=== PATIENT | female | born 1975 | race Caucasian/White ===

== ENCOUNTER → 2023-05-26 10:06 | Outpatient (BNVA) | payer SELFPAY | PROVIDERS: Family Provider Family Medicine; PCP Family Medicine; Visit Provider Family Medicine | DX: E11.621 Type 2 diabetes mellitus with foot ulcer; L97.509 Non-pressure chronic ulcer of other part of unspecified foot with unspecified severity; E03.9 Hypothyroidism, unspecified | CPT/HCPCS: 80053; 80061; 83036; 84443; 85025; 86140 ==

== ENCOUNTER → 2023-05-29 08:43 | Outpatient (BNVA) | payer OTHER, SELFPAY | PROVIDERS: Family Provider Family Medicine; PCP Family Medicine; Visit Provider Podiatrist Foot & Ankle Surgery | DX: E11.621 Type 2 diabetes mellitus with foot ulcer (principal); L97.512 Non-pressure chronic ulcer of other part of right foot with fat layer exposed; L97.522 Non-pressure chronic ulcer of other part of left foot with fat layer exposed; Z79.84 Long term (current) use of oral hypoglycemic drugs | CPT/HCPCS: 73630 ==

== ENCOUNTER → 2023-06-16 10:03 | Outpatient (BNVA) | payer OTHER, SELFPAY | PROVIDERS: Family Provider Family Medicine; PCP Family Medicine; Visit Provider Nurse Practitioner Family | DX: E11.52 Type 2 diabetes mellitus with diabetic peripheral angiopathy with gangrene (principal); L89.892 Pressure ulcer of other site, stage 2; L97.321 Non-pressure chronic ulcer of left ankle limited to breakdown of skin; Z09 Encounter for follow-up examination after completed treatment for conditions other than malignant neoplasm | CPT/HCPCS: 87070; 87077; 87176; 87186; 87205 ==

== ENCOUNTER 2023-06-18 12:13 | Outpatient (CLI) | payer OTHER, SELFPAY | END 2023-06-18 12:14 | disposition home or self-care (01) | LOC: SPT 12:14 | PROVIDERS: Family Provider Family Medicine; PCP Family Medicine; Visit Provider Podiatrist Foot & Ankle Surgery | DX: Z46.89 Encounter for fitting and adjustment of other specified devices (principal); E11.621 Type 2 diabetes mellitus with foot ulcer; L97.509 Non-pressure chronic ulcer of other part of unspecified foot with unspecified severity | CPT/HCPCS: 97760; L4361 ==

== ENCOUNTER → 2023-11-06 08:28 | Outpatient (BNVA) | payer OTHER, SELFPAY | PROVIDERS: Family Provider Family Medicine; PCP Family Medicine; Visit Provider Family Medicine | DX: Z13.6 Encounter for screening for cardiovascular disorders (principal) | CPT/HCPCS: 80061; 82947; 83036 ==

== ENCOUNTER → 2023-11-09 14:40 | Outpatient (BNVA) | payer OTHER, SELFPAY | PROVIDERS: Family Provider Family Medicine; PCP Family Medicine; Visit Provider Podiatrist Foot & Ankle Surgery | DX: E11.621 Type 2 diabetes mellitus with foot ulcer (principal); L97.518 Non-pressure chronic ulcer of other part of right foot with other specified severity; E11.8 Type 2 diabetes mellitus with unspecified complications; Z79.84 Long term (current) use of oral hypoglycemic drugs | CPT/HCPCS: 73630 ==

== ENCOUNTER → 2024-12-05 09:59 | Outpatient (BNVA) | payer OTHER, SELFPAY | PROVIDERS: Family Provider Family Medicine; PCP Family Medicine; Visit Provider Family Medicine | DX: I10 Essential (primary) hypertension (principal); E11.621 Type 2 diabetes mellitus with foot ulcer; L97.509 Non-pressure chronic ulcer of other part of unspecified foot with unspecified severity; E11.9 Type 2 diabetes mellitus without complications; E03.9 Hypothyroidism, unspecified; M19.90 Unspecified osteoarthritis, unspecified site | CPT/HCPCS: 80053; 80061; 83036; 84443; 84550; 85025; 86140; 86160; 86162; 86225; 86235; 86255; 86376 ==

== ENCOUNTER 2024-12-08 16:25 | Outpatient (CLI) | payer OTHER, SELFPAY ==
--- NOTE | 2024-12-08 16:45 | MR_ITS ---
WS: [id number] MRI LEFT FOOT WITH AND WITHOUT CONTRAST. COMPARISON: Radiograph 11/09/2023 Multiplanar, multisequence imaging is performed with and without contrast. MultiHance 20 mL. Abnormal appearance of the hindfoot centered at the calcaneus. There is abnormal T2 signal throughout a large portion of the calcaneus. Very mild sparing of the anterior calcaneal process and the posterior most calcaneus. There is abnormal marrow signal consistent with edema. On the postcontrast imaging there is enhancement consistent with osteomyelitis. Heterogeneous, up edematous soft tissue along the lateral aspect of the posterior calcaneus is probably a treated tract and ulceration although it does not appear to be open. There is a significant amount of edema with enhancement along the posterior lateral calcaneus. Large area of osteomyelitis throughout the calcaneus. There is marked cellulitis surrounding the calcaneus and along the lateral foot extending into the midfoot. Mild thickening of the peroneal brevis tendon with increased signal along the lateral ankle consistent with a partial tear and tendinopathy. There is edema along the lateral ankle closely associated with the peroneal tendon sheath. Lateral plantar aponeurosis is involved with edema and cellulitis. Achilles tendon is negative. No osteochondral lesions along the talar dome. MR/MR foot LT wo/w con [id number] IMPRESSION: 1. Large area of involvement of osteomyelitis involving the calcaneus. Greater than 50% involvement of the calcaneus. 2. Diffuse cellulitis along the lateral foot. No definite abscess identified. 3. Cellulitis and edema involves the lateral most plantar aponeurosis. 4. Partial focal tear peroneal brevis tendon.
[2024-12-08] MEDS: gadobenate dimeglumine 20 mL vial IV (17:24)
== END 2024-12-08 16:26 | disposition home or self-care (01) ==
PROVIDERS: PCP Family Medicine; Visit Provider Family Medicine
DX: E11.621 Type 2 diabetes mellitus with foot ulcer (principal); L97.529 Non-pressure chronic ulcer of other part of left foot with unspecified severity; L03.116 Cellulitis of left lower limb; S86.312A Strain of muscle(s) and tendon(s) of peroneal muscle group at lower leg level, left leg, initial encounter; X58.XXXA Exposure to other specified factors, initial encounter; R93.6 Abnormal findings on diagnostic imaging of limbs; M86.8X7 Other osteomyelitis, ankle and foot
CPT/HCPCS: 73720; 85025; 86140

== ENCOUNTER → 2024-12-09 11:50 | Outpatient (BNVA) | payer OTHER, SELFPAY | PROVIDERS: PCP Family Medicine; Visit Provider Podiatrist Foot & Ankle Surgery | DX: E11.621 Type 2 diabetes mellitus with foot ulcer (principal); L97.528 Non-pressure chronic ulcer of other part of left foot with other specified severity; L03.116 Cellulitis of left lower limb; E11.9 Type 2 diabetes mellitus without complications; M86.8X7 Other osteomyelitis, ankle and foot; Z79.84 Long term (current) use of oral hypoglycemic drugs | CPT/HCPCS: 73630 ==

== ENCOUNTER 2024-12-09 16:57 | Inpatient (IN) | payer OTHER, SELFPAY ==
[2024-12-09 17:12] VITALS: BP 155/97; PULSE 110; TEMP 36.7; O2SAT 94
--- NOTE | 2024-12-09 17:16 | PM.HP ---
Providers/Chief Complaint Admitting Physician: Anthony Garcia MD Primary Care Provider: Pino Sandoval MD Chief Complaint: abscess History of Present Illness 49-year-old female with a past medical history of hypothyroidism, diabetes mellitus type 2, hypertension, and atrial fibrillation presents for preoperative evaluation for right foot surgery scheduled for tomorrow, 12/10/2024. Patient has osteomyelitis involving greater than 50% of the right calcaneus, diffuse periostitis along the lateral foot, cellulitis, edema involving the lateral plantar aponeurosis, and a partial focal tear of the peroneal brevis tendon, as noted on MRI performed on 12/08/2024. Patient reports the right foot issue has been present for a couple of weeks with associated redness around the heel. There is no history of drainage or opening of the wound. Patient also has a lesion on the right toe that has been present for a while and is extending underneath the nail. This was not evaluated by the community living instructor during the recent visit. Patient denies recent fevers or chills. Noted nausea for a couple of days about a month ago, but denies current nausea or vomiting. Started on augmentin on 12/05/[address] Galindo. Past Medical History: 1. Hypothyroidism: Recently restarted levothyroxine 25 mcg daily. TSH was 6.12 two days prior to presentation (12/07/2024). 2. Diabetes Mellitus Type 2: Last A1C 9.4%. Currently takes glimepiride and metformin, last dose taken this morning. 3. Hypertension: Takes spironolactone. 4. Atrial Fibrillation: Diagnosed in [address] Galindo. Patient reports palpitations (fluttering sensation). Previously on aspirin and metoprolol, but discontinued due to medication non-compliance. 5. History of right foot infection in 2022, polymicrobial (Enterococcus, Klebsiella, Staphylococcus aureus, Group B Streptococcus), required wearing a boot for a while. Patient also reports symptoms suggestive of a possible autoimmune disorder. 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 Dr. Sandoval recommended repeating the tests after the current infection resolves. Patient's liver function tests showed an elevated alkaline phosphatase. White blood cell count was 18,000 on 12/05, decreased to 11,000 on 12/08, and increased to 13,000 today. CRP was 243 on 12/05 and decreased to 116 on 12/08. Today's CRP is pending. Total cholesterol is 205, LDL is 133, and HDL is 53. Patient is not currently taking any medication for hyperlipidemia. Review of Systems General: Reports: 10 or more systems reviewed and unremarkable except in HPI and below Medications/Allergies Home Medications ?Medication ?Instructions ?Recorded ?Confirmed ?Last Taken ?Type Diabetic Shoes with heat molded #1 ea 05/29/23 12/09/24 Unknown Rx inserts CAM Boot #1 ea 06/18/23 12/09/24 Unknown Rx miscellaneous medical supply 1 ea miscellaneous DAILY #1 ea 09/08/23 12/09/24 Unknown Rx diabetic shoes with custom inserts #1 ea 11/23/23 12/09/24 Unknown Rx amoxicillin 875 mg-potassium 1 tab PO BID 7 days #14 tabs 12/05/24 12/09/24 Unknown Rx clavulanate 125 mg tablet glimepiride 4 mg tablet 4 mg PO DAILY #30 tabs 12/05/24 12/09/24 Unknown Rx levothyroxine 25 mcg tablet 25 mcg PO DAILY #90 tabs 12/05/24 12/09/24 Unknown Rx metformin 500 mg tablet,extended 500 mg PO BID #60 tabs 12/05/24 12/09/24 Unknown Rx release 24 hr spironolactone 25 mg tablet 25 mg PO DAILY #30 tabs 12/05/24 12/09/24 Unknown Rx Allergies Allergy/AdvReac Type Severity Reaction Status Date / Time No Known Allergies Allergy Verified 12/09/24 10:22 PFSH Acute PFSH: Medical History Hypothyroid Diabetes mellitus type 2, controlled Social History Smoking and tobacco/nicotine status: never used tobacco/nicotine Physical Exam Narrative: Vitals: BP 155/97, HR 110. Cardiovascular: Regular rhythm, tachycardic. HEENT: Grossly unremarkable CVS: RRR, no murmur, rubs or gallops Chest: CTABL Abd: Soft, NT, ND Ext; Edema Data 12/09/24 17:29 12/09/24 17:29 A&P Assessment and plan (1) Diabetes mellitus type 2, controlled: (2) Hypothyroid: (3) Cellulitis: (4) Paroxysmal atrial fibrillation: Plan 1. Left Foot Osteomyelitis with Cellulitis: - Admit for right foot surgery tomorrow. - NPO after midnight. - Start vancomycin and Zosyn. - Follow up on OR culture and path - No prior history of PVD 2. Diabetes Mellitus Type 2: - Poorly controlled (A1C 9.4%). - Hold oral hypoglycemics (glimepiride and metformin) while inpatient. - Resume home medications after discharge. - Sliding scale insulin 3. Hypertension: - Elevated BP 155/97. - Continue spironolactone. - Consider adding a beta-brandon (e.g., metoprolol) if hypertension persists or if atrial fibrillation is confirmed on telemetry. 4. Atrial Fibrillation: - History of paroxysmal atrial fibrillation, currently symptomatic with palpitations at times . - Obtain EKG and continuous telemetry monitoring. - No prior Echo - Currently sinus tachy 5. Hypothyroidism: - Continue levothyroxine 25 mcg daily. - Give dose post-operatively tomorrow. 6. Right Foot Toe Lesion: - Defer to community living instructor 7. Hyperlipidemia: - Elevated LDL. Consider starting statin therapy as outpatient. DVT prophylaxis - Heparin PDMP PDMP Reviewed: Not Reviewed Attestations Medical Necessity Statement*: Will require over 2 midnight stay in hospital for eval and treatment Coding Level of Care Code Acute Code for Chg Fwd Diagnoses Diabetes mellitus type 2, controlled E11.9 Hypothyroid E03.9 Cellulitis L03.90 Paroxysmal atrial fibrillation I48.0
[2024-12-09 17:38] LABS: Basophils # 0.1 10^3/uL (0.0-0.1); Basophils % 0.6 %; Eosinophils # 0.1 10^3/uL (0.0-0.8); Eosinophils % 0.6 %; Lymphocytes # 3.4 10^3/uL (0.8-4.8); Lymphocytes % 24.9 %; Mean Corpuscular HGB Conc 31.4 g/dL (30-55); Mean Corpuscular Hemoglobin 27.6 pg (27-33); Mean Corpuscular Volume 87.9 fl (85-98); Mean Platelet Volume 10.6 fL (7.4-10.4); Monocytes # 1.1 10^3/uL (0.2-0.9); Neutrophils # 8.88 10^3/uL (1.8-7.7); Neutrophils % 65.1 %; Nucleated Red Blood Cells % 0 %; Platelet Count 344 10^3/cmm (157-399); Red Blood Count 4.89 10^6/uL (3.85-5.65); Red Cell Distribution Width 12.9 % (12.1-15.1); White Blood Count 13.64 10^3/uL (3.29-11.43)
[2024-12-09 17:55] LABS: Albumin Level 3.8 g/dL (3.5-5.2); Alkaline Phosphatase 102 U/L (35-105); Anion Gap 20.2 (5-19); Aspartate Amino Transferase 25 U/L (0-32); Blood Urea Nitrogen 14 mg/dL (6-20); C Reactive Protein 53.5 mg/L (0.0-4.9); Calcium 9.7 mg/dL (8.5-10.5); Carbon Dioxide 19 mmol/L (22-29); Chloride 102 mmol/L (98-107); Globulin 4.3 g/dL (1.3-4.6); Glomerular Filtration Rate 88.9 mL/min (90-130); Glucose 138 mg/dL (65-115); Osmolality Calculated 287 mOsm/kg (285-295); Potassium 4.2 mmol/L (3.5-5.1); Sodium 137 mmol/L (136-145); Total Bilirubin 0.5 mg/dL (0.15-1.2); Total Protein 8.1 g/dL (6.6-8.7)
[2024-12-09 18:01] LABS: Procalcitonin 0.15 ng/mL (0-0.5)
[2024-12-09 18:05] LABS: Alanine Aminotransferase 30 U/L (0-33)
[2024-12-09 18:23] LABS: Glucose Point of Care 119 mg/dL (70-110)
--- NOTE | 2024-12-09 18:39 | ECG_ITS ---
[facility] Date: 2024-12-09 Pat Name: Jacquelyn Marin Department: Room: 279 Gender: Female [place]: : 1975 Requested By: Mike Singleton Order Number: [id number] Reading MD: GINA BARDALES Measurements Intervals [place] Rate: 107 P: 38 [place]: 178 QRS: 48 QRSD: 98 T: 43 QT: 340 QTc: 454 Interpretive Statements SINUS TACHYCARDIA LOW QRS VOLTAGE IN PRECORDIAL LEADS [QRS DEFLECTION < 1.0 mV IN CHEST LEADS] ABNORMAL RHYTHM ECG No previous ECG available for comparison Electronically Signed On 12-18-2024 21:46:23 CDT by GINA BARDALES [email or web address]
--- NOTE | 2024-12-09 18:41 | PHA.VACGOAL ---
Vancomycin Goal - Goal Vancomycin Goal:: 15-20 mg/L Vancomycin Indication:: Osteo - Therapy Current therapy:: Pip/Tazo Day of therpy:: Day []of [] . Actual body weight (kg): 249 lb 6.4 oz - Data Labs: WBC 13.64 10^3/uL (3.29-11.43) H 12/09/24 17: RBC 4.89 10^6/uL (3.85-5.65) 12/09/24 17: Hgb 13.50 g/dL (11.27-16.99) 12/09/24 17: Hct 43.0 % (36-47) 12/09/24 17: MCV 87.9 fl (85-98) 12/09/24 17: MCH 27.6 pg (27-33) 12/09/24 17: MCHC 31.4 g/dL (30-55) 12/09/24 17: RDW 12.9 % (12.1-15.1) 12/09/24 17: Sodium 137 mmol/L (136-145) 12/09/24 17: Potassium 4.2 mmol/L (3.5-5.1) 12/09/24 17: Chloride 102 mmol/L (98-107) 12/09/24 17: Carbon Dioxide 19 mmol/L (22-29) L 12/09/24 17: Anion Gap 20.2 (5-19) H 12/09/24 17: BUN 14 mg/dL (6-20) 12/09/24 17: Creatinine 0.7 mg/dL (0.5-0.9) 12/09/24 17:29 GFR Calculation 88.9 mL/min (90-130) L 12/09/24 17:29 Last dialysis session:: N/A Treatment plan:: new consult Regimen:: LOADING DOSE OF 3000 MG X 1 PER DOSING PROTOCOL. MAINTENANCE DOSE OF 1500 MG Q8H Follow up:: WILL CONTINUE TO MONITOR AND FOLLOW UP DAILY
[2024-12-09] MEDS: heparin 5,000 unit/mL INJ 1 mL 5000 UNIT SUBCUT (19:50)
[2024-12-09] MEDS: piperacillin-tazobactam 3.375 GM in sodium chloride 0.9% (plus) 50 ML IV (19:52)
[2024-12-09 20:00] VITALS: BP 133/77; PULSE 106; RESP 16; TEMP 37; O2SAT 96
[2024-12-09] MEDS: vancomycin 3,000 MG/600 ML PIGGYBACK 200 MG IV (20:52)
[2024-12-09 21:04] LABS: Glucose Point of Care 155 mg/dL (70-110)
--- NOTE | 2024-12-09 21:23 | PM.CONSULT ---
Providers/Reason For Consult Consulting Physician/Specialty*: Dr. Francisco Obrien DPM Reason for Consult*: Left foot abscess with underlying osteomyelitis Attending Physician: Mike Singleton Primary Care Provider: Pino Sandoval MD History of Present Illness History of Present Illness Jacquelyn Marin is a 49 year old female with history of diabetes, chronic ulceration to right foot who has had worsening erythema and pain to right foot over the course of the past couple of weeks. Patient denies any history of puncture wound to the area. Denies any recent abrasion or ulceration to the affected area. She has been following outpatient with her PCP who noticed worsening condition of right foot despite antibiotic usage. MRI was ordered which showed diffuse osteomyelitis of right calcaneus. Patient was sent to my clinic today for further evaluation. Recent labs showed leukocytosis and a CRP in excess of 200. Based on presentation in my clinic today along with MRI findings and x-ray obtained today which shows erosive changes to lateral plantar calcaneus, concern for abscess with underlying osteomyelitis. Patient was admitted to the hospital for IV abx therapy, surgical intervention and PICC line placement given findings of osteomyelitis. Patient endorses pain to left foot when weight bearing. Otherwise, denies any constitutional symptoms. Review of Systems General: Reports: 10 or more systems reviewed and unremarkable except in HPI and below Const: Denies: fever(s), chills, body aches or change in appetite Eyes: Denies: change in vision or blurry vision Card: Denies: chest pain, palpitations or irregular heart rhythm Resp: Denies: dyspnea GI: Denies: abdominal pain, nausea, vomiting or diarrhea Musc: Reports: joint stiffness Skin/Breast: Reports: non-healing lesions and lesions Neuro: Reports: numbness in extremities Medications/Allergies Home Medications ?Medication ?Instructions ?Recorded ?Confirmed ?Last Taken ?Type Diabetic Shoes with heat molded #1 ea 05/29/23 12/09/24 Unknown Rx inserts CAM Boot #1 ea 06/18/23 12/09/24 Unknown Rx miscellaneous medical supply 1 ea miscellaneous DAILY #1 ea 09/08/23 12/09/24 Unknown Rx diabetic shoes with custom inserts #1 ea 11/23/23 12/09/24 Unknown Rx amoxicillin 875 mg-potassium 1 tab PO BID 7 days #14 tabs 03/24/25 03/28/25 Unknown Rx clavulanate 125 mg tablet glimepiride 4 mg tablet 4 mg PO DAILY #30 tabs 12/05/24 12/09/24 Unknown Rx levothyroxine 25 mcg tablet 25 mcg PO DAILY #90 tabs 12/05/24 12/09/24 Unknown Rx metformin 500 mg tablet,extended 500 mg PO BID #60 tabs 12/05/24 12/09/24 Unknown Rx release 24 hr spironolactone 25 mg tablet 25 mg PO DAILY #30 tabs 12/05/24 12/09/24 Unknown Rx Allergies Allergy/AdvReac Type Severity Reaction Status Date / Time No Known Allergies Allergy Verified 12/09/24 10:22 Current Medications Generic Name Dose Route Start Last Admin Trade Name Freq PRN Reason Stop Dose Admin Heparin Sodium (Porcine) 5,000 unit 12/09/24 17:15 12/09/24 19:50 Heparin 5,000 Unit/Ml Inj 1 Ml SUBCUT 5,000 unit Q12H LEANNE Administration Piperacillin Sod/Tazobactam 50 mls @ 12.5 mls/hr 12/09/24 19:30 12/09/24 19:52 Sod 3.375 gm/ Sodium Chloride IV 12.5 mls/hr Q8H LEANNE Administration Vancomycin HCl 3,000 mg in 600 mls @ 200 mls/hr 12/09/24 20:30 12/09/24 20:52 Vancocin IV 12/09/24 23:29 200 mls/hr ONCE ONE Administration Insulin Human Lispro 0 unit 12/09/24 18:00 12/09/24 19:24 Insulin Lispro 100 Unit/1 Ml SUBCUT Not Given WM&BEDTIME LEANNE Protocol PFSH Acute PFSH: Medical History Hypothyroid Diabetes mellitus type 2, controlled Social History Smoking and tobacco/nicotine status: never used tobacco/nicotine Vitals/I&O/Wt Last Vital Signs Temp 98.6 F 12/09/24 20:00 Pulse 106 H 12/09/24 20:00 Resp 16 12/09/24 20:00 BP 133/77 12/09/24 20:00 Pulse Ox 96 12/09/24 20:00 O2 Del Method Room Air 12/09/24 20:00 Weight last 48 hrs Weight 249 lb 6.4 oz Physical Exam Narrative: GENERAL: A&O x 3 VASCULAR: DP/PT pulses palpable 2/4 with CFT intact, <3seconds to distal digits DERMATOLOGICAL: Extensive erythema and swelling to lateral left ankle with induration and central discoloration with activce serous drainage. Abscess present. MUSCULOSKELETAL: Pain with palpation of lateral calcaneal region over abscess site. NEUROLOGICAL: Neurological sensation to the affected foot and ankle is present through L4-S1 dermatomes with no hyper/hypoesthesias, negative Tinel or Valleix's sign IMAGIN view x-rays of the left foot were taken at today's visit and were personally interpreted by me. These radiographs show erosive changes to lateral wall of calcaneus at the level of the lateral tubercle of the calcaneal process. No soft tissue emphysema present. MRI shows diffuse osteomyelitis throughout calcaneus. Data 12/09/24 17:29 12/09/24 17:29 A&P Assessment and plan (1) Abscess of left foot: (2) Type 2 diabetes mellitus: (3) Cellulitis: (4) Osteomyelitis: Plan -Left foot abscess with underlying osteomyelitis -Labs and vitals reviewed -WBC 13.64 -ESR not available -CRP 243--> 53 -VSS -Abx Vanco/Zosyn -Diet: N.p.o. at midnight for procedure 12/10/2024 -Plan for left foot incision and drainage tomorrow 12/10/2024 at 8 AM -Pain Mgmt: Per primary team -Weight bearing: Weightbearing as tolerated -Dressings: Dry sterile dressing -Continue current Abx therapy until ID and Sensitivity results -Trend labs -Discharge plan: Given findings of osteomyelitis on MRI patient will need PICC line prior to discharge. Antibiotic recommendations will be made based on intraoperative cultures -Podiatry will continue to round on patient daily and provide recommendations PDMP PDMP Reviewed: Not Reviewed Coding Level of Care Code Acute Code for g Fwd Diagnoses Abscess of left foot L02.612 Type 2 diabetes mellitus E11.9 Cellulitis L03.90 Osteomyelitis M86.9
[2024-12-09] MEDS: insulin lispro 100 unit/1 mL SUBCUT (21:54)
[2024-12-09 23:09] LABS: Glucose Point of Care 107 mg/dL (70-110)
[2024-12-10] VITALS (20 sets, daily range): BP systolic 108–141; BP diastolic 59–91; PULSE 85–103; RESP 15–23; TEMP 36.1–36.9; O2SAT 91–98
[2024-12-10] MEDS: piperacillin-tazobactam 3.375 GM in sodium chloride 0.9% (plus) 50 ML IV ×3 (03:28→22:34)
[2024-12-10] MEDS: vancomycin 1,500 MG/300 ML PIGGYBACK 200 MG IV ×3 (06:19→20:40)
[2024-12-10] MEDS: levothyroxine 25 mcg Tablet PO (06:20)
[2024-12-10 06:38] LABS: Glucose Point of Care 117 mg/dL (70-110)
[2024-12-10 07:30] LABS: HCG, Serum Qual Negative (Negative)
--- NOTE | 2024-12-10 07:45 | W.PM.OPSUD ---
Surgery/Procedure H&P Update DATE OF PROCEDURE: December 10, 2024 DATE H&P PERFORMED: 12/09/24 H&P UPDATE INFORMATION: I have reviewed H&P completed within last 30 days, I have examined patient prior to procedure, No changes to prior documentation, H&P is in [facility] EMR on date indicated and Risks and benefits of the procedure reviewed PLANNED PROCEDURE: Operation Date: 12/10/24 08:10 Proposed Procedures p Incision And Drainage left foot abcess(Left) - Francisco Obrien DPM
--- NOTE | 2024-12-10 07:50 | ANES.PREANE2 ---
Pre-Anesthetic Assessment Height/Weight: Height 1.73 m Weight 113.58 kg Temp Pulse Resp BP Pulse Ox O2 Del Method 98.5 F 103 H 20 H 135/89 97 Room Air 12/10/24 07:05 12/10/24 07:05 12/10/24 07:05 12/10/24 07:05 12/10/24 07:05 12/10/24 07:05 Operation Date: 12/10/24 08:10 Proposed Procedures p Incision And Drainage left foot abcess(Left) - Francisco Obrien DPM Familial anesthetic complications: None Was Beta Malvin taken within 24 hours: N/A Was Clonidine taken within 24 hours: N/A Last intake: Intake Last Liquid Date 12/09/54 Last Liquid Time 23:00 Last Solid Date 12/09/24 Last Solid Time 22:00 Social No alcohol and No tobacco Exam alert, oriented x 3, clear to auscultation bilaterally and regular rate & rhythm Airway Mallampati: Class II Dentition: full CV/HEM Atrial Fibrillation Metabolic Diabetes Mellitus and Thyroid Disease Anesthetic Plan ASA status: 3 Anesthesia: General Risk of > 500 ml blood loss (7ml/kg in children): No Medications/Allergies Home Medications ?Medication ?Instructions ?Recorded ?Confirmed ?Last Taken ?Type Diabetic Shoes with heat molded #1 ea 05/29/23 12/09/24 Unknown Rx inserts CAM Boot #1 ea 06/18/23 12/10/24 Unknown Rx miscellaneous medical supply 1 ea miscellaneous DAILY #1 ea 09/08/23 12/09/24 Unknown Rx diabetic shoes with custom inserts #1 ea 11/23/23 12/09/24 Unknown Rx amoxicillin 875 mg-potassium 1 tab PO BID 7 days #14 tabs 12/05/24 12/09/24 Unknown Rx clavulanate 125 mg tablet glimepiride 4 mg tablet 4 mg PO DAILY #30 tabs 12/05/24 12/09/24 Unknown Rx levothyroxine 25 mcg tablet 25 mcg PO DAILY #90 tabs 12/05/24 12/09/24 Unknown Rx metformin 500 mg tablet,extended 500 mg PO BID #60 tabs 12/05/24 12/09/24 Unknown Rx release 24 hr spironolactone 25 mg tablet 25 mg PO DAILY #30 tabs 12/05/24 12/09/24 Unknown Rx Allergies Allergy/AdvReac Type Severity Reaction Status Date / Time No Known Allergies Allergy Verified 12/09/24 10:22 Current Medications Generic Name Dose Route Start Last Admin Trade Name Noah PRN Reason Stop Dose Admin Heparin Sodium (Porcine) 5,000 unit 12/09/24 17:15 12/10/24 05:46 Heparin 5,000 Unit/Ml Inj 1 Ml SUBCUT Not Given Q12H LEANNE Piperacillin Sod/Tazobactam 50 mls @ 12.5 mls/hr 12/09/24 19:30 12/10/24 03:28 Sod 3.375 gm/ Sodium Chloride IV 12.5 mls/hr Q8H LEANNE Administration Vancomycin HCl 1,500 mg in 300 mls @ 200 mls/hr 12/10/24 05:00 12/10/24 06:19 Vancocin IV 200 mls/hr Q8H LEANNE Administration Insulin Human Lispro 0 unit 12/09/24 18:00 12/09/24 21:54 Insulin Lispro 100 Unit/1 Ml SUBCUT 4 unit WM&BEDTIME LEANNE Administration Protocol Levothyroxine Sodium 25 mcg 12/10/24 06:00 12/10/24 06:20 Levothyroxine 25 Mcg Tablet PO 25 mcg QAM LEANNE Administration [facility] Anesthesia Medical History Hypothyroid Diabetes mellitus type 2, controlled Social History Smoking and tobacco/nicotine status: never used tobacco/nicotine Data Anesthesia 12/09/24 17:29 12/09/24 17:29 Short CBC 12/09/24 Range/Units 17:29 WBC 13.64 H (3.29-11.43) 10^3/uL Hgb 13.50 (11.27-16.99) g/dL Hct 43.0 (36-47) % MCV 87.9 (85-98) fl Plt Count 344 (157-399) 10^3/cmm Neut % (Auto) 65.1 % Neut # (Auto) 8.88 H (1.8-7.7) 10^3/uL BMP 12/09/24 17:29 Sodium 137 Potassium 4.2 Chloride 102 Carbon Dioxide 19 L BUN 14 Creatinine 0.7 Glucose 138 H Calcium 9.7 Liver Function 12/09/24 Range/Units 17:29 Total Bilirubin 0.5 (0.15-1.2) mg/dL AST 25 (0-32) U/L ALT 30 (0-33) U/L Alkaline Phosphatase 102 (35-105) U/L Albumin 3.8 (3.5-5.2) g/dL Coags 12/09/24 17:29 C-Reactive Protein 53.5 H Cardiac Studies: No Data to Display
[2024-12-10] MEDS: BUPivacaine 0.5% INJ 30 mL INJECTION (08:34)
--- NOTE | 2024-12-10 08:46 | P.BOP_ITS ---
Date of procedure: 12/10/2024 Surgeon name: Dr. Francisco Obrien D.P.M. Painting Department Supervisor(s) name(s): Magdalene Procedure(s) performed: Incision bone cortex left calcaneus Description of findings: Abscess lateral left calcaneus extending down to lateral wall of calcaneus with erosive changes of calcaneal wall consistent with osteomyelitis Estimated blood loss: 10 cc Tourniquet time: 20 minutes Specimen(s) removed: Bone culture left calcaneus sent to pathology, cultures aerobic and anaerobic Post-operative diagnosis: Abscess/osteomyelitis left calcaneus
--- NOTE | 2024-12-10 08:53 | P.OP_ITS ---
Operative Report Date of procedure: December 10, 2024 Pre-op diagnosis: Left foot Surgeon: Francisco Obrien DPM Procedure: Date of procedure: 12/10/2024 Pre-op diagnosis: 1. Abscess left foot 2. Osteomyelitis left calcaneus Post-op diagnosis: Same Post-op findings: Abscess formation lateral aspect of left calcaneus with approximately 5 cc of purulence extending down to the lateral calcaneal wall. Lateral calcaneal wall spongy and soft bone cortex indicative of osteomyelitis Procedure done: Incision bone cortex left calcaneus CPT 92420 Implants: None Specimens removed: 1. Bone calcaneus left foot sent to pathology as surgical specimen 2. Cultures aerobic and anaerobic left foot abscess sent to micro for ID and sensitivity Surgeon: Dr. Francisco Obrien DPM Senior Drafter: Magdalene Estimated blood loss: 10 cc Tourniquet time: 20 minutes Complications: None The patient presents with a severe foot infection involving left lateral calcaneus, characterized by erythema, swelling, and drainage. The infection is complicated by underlying conditions, including diabetes, which have contributed to the progression of the infection despite conservative management. Preoperative imaging and laboratory results indicate osteomyelitis, abscess formation, necessitating surgical intervention. The planned procedure is intended to address the infection, debride necrotic tissue, and, if necessary, assess the viability of surrounding structures to prevent further complications. The patient has been NPO since midnight. The history has been reviewed and the history and physical is current. The signed consent was confirmed and placed in the patient chart. Patient imaging has been reviewed and is consistent with the diagnosis. Under mild sedation, the patient was brought into the operating room and left on the gurney in the supine position. Patient is receiving antibiotics around the clock on the floor, Therefore, additional antibiotic prophylaxix was not administered. General sedation was then performed by the anesthesiateam. A local skylar block was performed using 30 cc of 0.5% Marcaine plain. A pneumatic tourniquet was then placed about the left ankle. The operative extr emity was then prepped and draped in the usual fashion. After prep, the following procedure was then performed. The tourniquet was inflated to 250 mmHg. No exsanguination was performed. Attention was directed to the lateral aspect of the left calcaneus. A large area of erythema was enveloping the lateral calcaneus with centrally located discoloration and blanching consistent with abscess formation. This epicenter was located approximately 1 cm posterior to the peroneal tendon sheath. A 4 cm incision was made over the lateral aspect of the calcaneus using a #15 blade. Blunt dissection was carried down through subcutaneous the superficial fascia using a mosquito hemostat. Immediate purulence was visualized to be coming from the wound. Cultures aerobic and anaerobic were taken at this point. Continue dissection revealed that the pocket of purulence was isolated to this area extending down to the lateral wall the calcaneus. Lateral wall of calcaneus was discolored, spongy and soft. A rongeur was used to take bone biopsy of this site. Next a curette was used to curette the soft portion of bone of calcaneus at this level. Remaining bone appeared healthy and viable and bleeding and normal integrity. The site was then irrigated with copious amounts of sterile saline via pulse lavage. The foot was expressed and no further purulence was visualized. No further tracking was noted. The tourniquet was let down and good hyperemic response was noted to all digits of the left foot. The incision was closed with 3-0 Prolene. Incision was dressed with Xeroform, 4 x 4 gauze, Kerlix, Omar. Patient was placed into a cam boot. The patient tolerated the procedure and anesthesia well and without complication. The patient was transported from the operating room to the [facility] ry room with vital signs stable and vascular status intact to all digits of the left foot. Thepatient was instructed to remain weightbearing as tolerated in cam boot to the operative extremity, to keep surgical dressing clean, dry and intact. The patient will be transferred back to the floor once anesthesia criteria is met. I will continue to round on and follow the patient in the inpatientsetting and provide recommendations to stabilize the patient for discharge. Based on intraoperative findings patient will need PICC line placed with long- term IV antibiotic therapy.
--- NOTE | 2024-12-10 09:15 | ANE.PACU2 ---
Inpatient post-anesthesia follow up: Airway intact: Yes Vital signs: Temperature 98.6 F Pulse Rate 88 Respiratory Rate 18 Blood Pressure 117/71 Pulse Oximetry 96 Oxygen Delivery Me thod Room Air Oxygen Flow Rate 8 Fraction of Inspir ed Oxygen Hydration adequate: Yes Nausea and vomiting: No Pain level: 1 Mental status: Baseline
[2024-12-10] MEDS: spironolactone 25 mg Tablet PO (10:09)
[2024-12-10 10:59] LABS: Glucose Point of Care 114 mg/dL (70-110)
--- NOTE | 2024-12-10 12:14 | PC.CHAP ---
Pastoral Care Encounter/Spiritual Assessment Type of Contact [x] Declined typing checker visit [] Patient/Family/Request visit [] Outpatient visit [] Follow-up visit [] Physician referral [] Code/Alert [] Routine visit [] Staff referral [] Actively dying [] Patient sleeping [] Family support [] [] Out of room [] Palliative care [] [] Receiving care in room [] Pre-surgical visit [] Trauma [] Long length of stay [] ICU visit [] Other: Relational/Emotional Strength [] Patient feels connected with others/family/visitors/staff [] Distress [] Loneliness/isolation [] Abandonment Spirituality of Patient [] Person of Millicent [] Attends Jain of their Millicent [] Believes in Prayer [] Reads Bible or Adventism materials [] There are Spiritual issues to be addressed [employer] Interventions [] Prayer [] Active listening [] Non-anxious presence [] Spiritual/emotional support [] Crisis/trauma care [] Spiritual counseling [] Bereavement support [] Provided bereavement packet [] Provided Bible/devotional materials [] Provided toy/stuffed animal, coloring book to patient or family member [] Provided Communion [] Anointing/[place] [] Salvation [] Completed spiritual assessment [] Other: Impact on Illness or Injury [] Angry [] Fearful [] Anxious [] Often cries [] Exhaustion [] Unable to work [] Unable to attend mormon [] Unable to walk/stand [] Unable to read [] Unable to drive [] Unable to eat/drink [] Unable to sleep [] Unable to be with family [] Patient intubated [] Other: Summary Time spent with patient
[2024-12-10] MEDS: HYDROcodone-acetaminophen 5-325 mg Tablet 1 TAB PO (14:16)
--- NOTE | 2024-12-10 15:21 | P.PN_ITS ---
Subjective 2 Subjective: 49-year-old female with history of DM2 ( A1c 9.4%), HTN, hypothyroidism, and atrial fibrillation s/p left calcaneal debridement for osteomyelitis yesterday. Patient underwent incision of left calcaneal bone cortex with drainage of 5cc purulent material. OR findings confirmed osteomyelitis with spongy, soft bone cortex of lateral calcaneal wall. Did not have any new complaints. Medications: Reviewed: Yes Vitals/I&O/Wt Last Vital Signs Temp 98.3 F 12/10/24 14:25 Pulse 101 H 12/10/24 14:25 Resp 16 12/10/24 14:25 BP 108/59 12/10/24 14:25 Pulse Ox 96 12/10/24 14:25 O2 Del Method Room Air 12/10/24 14:25 O2 Flow Rate 8 12/10/24 08:54 12/10/24 12/10/24 12/10/24 06:59 14:59 22:59 Intake Total 650 / 650 880 / 880 Output Total 10 / 10 Balance 650 / 650 870 / 870 Weight last 48 hrs Weight 113.58 kg Weight 113.126 kg Physical Exam 2 Narrative: Vitals: BP 155/97, HR 110. Cardiovascular: Regular rhythm, tachycardic. HEENT: Grossly unremarkable CVS: RRR, no murmur, rubs or gallops Chest: CTABL Abd: Soft, NT, ND Ext; Post op on Left foot Data 12/09/24 17:29 12/09/24 17:29 A&P Assessment and plan (1) Diabetes mellitus type 2, controlled: (2) Hypothyroid: (3) Cellulitis: (4) Paroxysmal atrial fibrillation: Plan Left Calcaneal Osteomyelitis with Abscess - Surgical debridement performed with confirmation of osteomyelitis - Cultures pending, will adjust antibiotics based on results - Plan for 6 weeks of antibiotics given confirmed osteomyelitis with incomplete resection 1 - Consider ID consultation for long-term antibiotic management outpatient - Monitor inflammatory markers (CRP, WBC) to track treatment response - Post op management per podiatry Diabetes - Continue glucose monitoring - Resume home diabetic medications at discharge - Optimize glycemic control to promote wound healing Atrial Fibrillation - Consider anticoagulation strategy once hemostasis assured - Cardiology consultation for management recommendations Hypothyroidism - Continue levothyroxine 25 mcg daily Disposition: Continue post-operative care Anticipate discharge when stable with appropriate outpatient antibiotic plan Arrange follow-up with podiatry, primary care, and infectious disease PDMP PDMP Reviewed: Not Reviewed Attestations 2 Medical Necessity Statement*: Will require over 2 midnight stay in hospital for eval and treatment Coding Level of Care Code Acute Code for [facility] Fwd Diagnoses Diabetes mellitus type 2, controlled E11.9 Hypothyroid E03.9 Cellulitis L03.90 Paroxysmal atrial fibrillation I48.0
--- NOTE | 2024-12-10 16:06 | XRR_ITS ---
PROCEDURE INFORMATION: Exam: XR Chest Exam date and time: 12/10/2024 3:50 PM Age: 49 years old Clinical indication: Device placement; Picc; Additional info: Picc line insertion TECHNIQUE: Imaging protocol: Radiologic exam of the chest. Views: 1 view. COMPARISON: No relevant prior studies available. FINDINGS: Tubes, catheters and devices: Right arm PICC line with tip in the cavoatrial region. Lungs: Cardiac silhouette size, and vascularity are somewhat accentuated, likely related to poor inspiration/expansion however clinical correlation for mild CHF should be obtained. Upper lungs are clear. Lung bases are suboptimally assessed. Pleural spaces: No pleural effusion. No pneumothorax. Heart/Mediastinum: As above. Bones/joints: No acute osseous findings. Other findings: Single view was submitted. XR/XR chest 1V portable [id number] IMPRESSION: 1. Accentuated cardiac silhouette size and vascularity. See discussion above. 2. No obvious acute consolidation. Suboptimal lung base assessment. Followup including lateral view may be obtained if clinically indicated. 3. Right arm PICC line with tip in the cavoatrial region.
[2024-12-10 17:16] LABS: Glucose Point of Care 103 mg/dL (70-110)
[2024-12-10] MEDS: heparin 5,000 unit/mL INJ 1 mL 5000 UNIT SUBCUT (18:06)
[2024-12-10 20:53] LABS: Glucose Point of Care 162 mg/dL (70-110)
[2024-12-10] MEDS: insulin lispro 100 unit/1 mL SUBCUT (21:14)
[2024-12-11 04:00] VITALS: BP 124/75; PULSE 79; RESP 18; TEMP 36.5; O2SAT 95
[2024-12-11 04:47] LABS: Vancomycin Trough 24.4 ug/mL (10-15)
[2024-12-11 06:12] VITALS: PULSE 122
[2024-12-11] MEDS: piperacillin-tazobactam 3.375 GM in sodium chloride 0.9% (plus) 50 ML IV ×2 (06:28→17:50)
[2024-12-11] MEDS: heparin 5,000 unit/mL INJ 1 mL 5000 UNIT SUBCUT ×2 (06:28→17:51)
[2024-12-11] MEDS: levothyroxine 25 mcg Tablet PO (06:28)
[2024-12-11 06:30] LABS: Glucose Point of Care 120 mg/dL (70-110)
[2024-12-11 07:51] VITALS: BP 117/71; PULSE 88; RESP 18; TEMP 37; O2SAT 96
[2024-12-11] MEDS: spironolactone 25 mg Tablet PO (09:15)
[2024-12-11 09:57] LABS: Basophils # 0.1 10^3/uL (0.0-0.1); Basophils % 0.7 %; Eosinophils # 0.1 10^3/uL (0.0-0.8); Eosinophils % 1.1 %; Hematocrit 38.3 % (36-47); Lymphocytes # 2.9 10^3/uL (0.8-4.8); Lymphocytes % 30.8 %; Mean Corpuscular HGB Conc 31.6 g/dL (30-55); Mean Corpuscular Hemoglobin 28.1 pg (27-33); Mean Corpuscular Volume 89.1 fl (85-98); Mean Platelet Volume 10.6 fL (7.4-10.4); Monocytes # 0.7 10^3/uL (0.2-0.9); Neutrophils # 5.59 10^3/uL (1.8-7.7); Nucleated Red Blood Cells % 0 %; Platelet Count 276 10^3/cmm (157-399); Red Cell Distribution Width 13.1 % (12.1-15.1); White Blood Count 9.47 10^3/uL (3.29-11.43)
[2024-12-11 10:07] LABS: Erythrocyte Sedimentation Rate 69 mm/hr (0-15)
[2024-12-11 11:12] LABS: Glucose Point of Care 240 mg/dL (70-110)
[2024-12-11 11:36] VITALS: BP 134/85; PULSE 95; RESP 16; TEMP 36.9; O2SAT 94
[2024-12-11] MEDS: insulin lispro 100 unit/1 mL SUBCUT ×2 (11:41→21:48)
--- NOTE | 2024-12-11 11:45 | P.PN_ITS ---
Subjective 2 Subjective: Patient seen at bedside this morning. Resting comfortably. No overnight events. Pain is well-controlled. She states that she is ready to go home. Day 1 status post left foot incision and drainage of left calcaneus abscess. Vitals/I&O/Wt Last Vital Signs Temp 98.4 F 12/11/24 11:36 Pulse 95 12/11/24 11:36 Resp 16 12/11/24 11:36 BP 134/85 12/11/24 11:36 Pulse Ox 94 12/11/24 11:36 O2 Del Method Room Air 12/11/24 11:36 O2 Flow Rate 8 12/10/24 08:54 12/10/24 12/11/24 12/11/24 22:59 06:59 14:59 Intake Total 770 / 1650 50 / 1700 530 / 530 Balance 770 / 1640 50 / 1690 530 / 530 Weight last 48 hrs Weight 255 lb 1.6 oz Weight 250 lb 6.4 oz Weight 249 lb 6.4 oz Physical Exam 2 Narrative: GENERAL: A&O x 3 VASCULAR: DP/PT pulses palpable 2/4 with CFT intact, <3seconds to distal digits DERMATOLOGICAL: Left lateral calcaneal incision well coapted with sutures intact. No evidence of dehiscence. Erythema receding but persistent. No underlying fluctuance. MUSCULOSKELETAL: Minimal tenderness with palpation of joanne-incisional area left lateral calcaneus NEUROLOGICAL: Neurological sensation to the affected foot and ankle is present through L4-S1 dermatomes with no hyper/hypoesthesias, negative Tinel or Valleix's sign IMAGIN view x-rays of the left foot were taken at today's visit and were personally interpreted by me. These radiographs show erosive changes to lateral wall of calcaneus at the level of the lateral tubercle of the calcaneal process. No soft tissue emphysema present. MRI shows diffuse osteomyelitis throughout calcaneus. Data 12/11/24 09:43 12/09/24 17:29 Micro: Microbiology 12/10/24 08:21 Anaerobic Culture - Preliminary Foot - #1 12/10/24 08:21 Gram Stain - Final Other Source A&P Assessment and plan (1) Abscess of left foot: (2) Type 2 diabetes mellitus: (3) Cellulitis: (4) Osteomyelitis: Plan -Left foot abscess with underlying osteomyelitis -Labs and vitals reviewed -WBC 13.64--> 9.47 -ESR 69 -CRP 243--> 53--> 35 -VSS -Cultures: Pending -Abx Vanco/Zosyn -Diet: Okay for diet -Status post left foot incision and drainage. Improving. No plan for return to OR based on findings at bedside this morning. Patient labs are trending down -Pain Mgmt: Per primary team -Weight bearing: Weightbearing as tolerated in cam boot. -Dressings: Surgical dressing changed at bedside this morning. -Continue current Abx therapy until ID and Sensitivity results -Trend labs -Discharge plan: Given findings of osteomyelitis on MRI patient will need PICC line prior to discharge. Antibiotic recommendations will be made based on intraoperative cultures which are still pending. PICC line has been placed. Awaiting arrangement of outpatient infusions as well as culture results for final antibiotic recommendations. Upon discharge patient is to weight-bear as tolerated in cam boot to left foot. Also recommend follow-up with podiatry within 1 week of discharge from the hospital. -Podiatry will continue to round on patient daily and provide recommendations PDMP PDMP Reviewed: Not Reviewed Attestations 2 Medical Necessity Statement*: Awaiting final culture ID and sensitivity and outpatient antibiotic infusion arrangement Coding Level of Care Code Acute Code for [facility] Diagnoses Abscess of left foot L02.612 Type 2 diabetes mellitus E11.9 Cellulitis L03.90 Osteomyelitis M86.9
[2024-12-11] MEDS: vancomycin 1,500 MG/300 ML PIGGYBACK 200 MG IV (15:07)
[2024-12-11 16:01] VITALS: BP 134/81; PULSE 87; RESP 18; TEMP 36.8; O2SAT 94
[2024-12-11 16:20] LABS: Glucose Point of Care 104 mg/dL (70-110)
--- NOTE | 2024-12-11 16:25 | P.PN_ITS ---
Subjective 2 Subjective: 49-year-old female with history of DM2 ( A1c 9.4%), HTN, hypothyroidism, and atrial fibrillation s/p left calcaneal debridement for osteomyelitis yesterday. Patient underwent incision of left calcaneal bone cortex with drainage of 5cc purulent material. OR findings confirmed osteomyelitis with spongy, soft bone cortex of lateral calcaneal wall. Did not have any new complaints again today. Did have episode of hyperglycemia in am. Medications: Reviewed: Yes Vitals/I&O/Wt Last Vital Signs Temp 98.2 F 12/11/24 16:01 Pulse 87 12/11/24 16:01 Resp 18 12/11/24 16:01 BP 134/81 12/11/24 16:01 Pulse Ox 94 12/11/24 16:01 O2 Del Method Room Air 12/11/24 16:01 O2 Flow Rate 8 12/10/24 08:54 12/11/24 12/11/24 12/11/24 06:59 14:59 22:59 Intake Total 50 / 1700 1010 / 1010 Balance 50 / 1690 1010 / 1010 Weight last 48 hrs Weight 115.711 kg Weight 113.58 kg Weight 113.126 kg Physical Exam 2 Narrative: Cardiovascular: Regular ryythm, tachycardic. HEENT: Grossly unremarkable CVS: RRR, no murmur, rubs or gallops Chest: CTABL Abd: Soft, NT, ND Ext; Post op on Left foot Data 12/11/24 09:43 12/09/24 17:29 Micro: Microbiology 12/10/24 08:21 Gram Stain - Final Other Source Abscess Culture - Preliminary Coag positive Staphylococcus 12/10/24 08:21 Anaerobic Culture - Preliminary Foot - #1 A&P Assessment and plan (1) Diabetes mellitus type 2, controlled: (2) Hypothyroid: (3) Cellulitis: (4) Paroxysmal atrial fibrillation: Plan Left Calcaneal Osteomyelitis with Abscess - Surgical debridement performed with confirmation of osteomyelitis - Plan for 6 weeks of antibiotics - Consider ID consultation for long-term antibiotic management outpatient - Monitor inflammatory markers (CRP improving to 15, WBC- no leukocytosis ) to track treatment response - Post op management per podiatry - PICC line was placed. Plan: - Cultures pending, will adjust antibiotics based on results - Continue Vancomycin and zosyn for now Diabetes - Continue glucose monitoring - Resume home diabetic medications at discharge - Optimize glycemic control to promote wound healing Hx of Atrial Fibrillation - Cardiology consultation for management recommendations outpatient if recurrance of afib - Currently in NSR Hypothyroidism - Continue levothyroxine 25 mcg daily Disposition: Continue post-operative care Anticipate discharge when stable with appropriate outpatient antibiotic plan Arrange follow-up with podiatry, primary care, and infectious disease PDMP PDMP Reviewed: Not Reviewed Attestations 2 Medical Necessity Statement*: Awaiting final culture ID and sensitivity and outpatient antibiotic infusion arrangement Coding Level of Care Code Acute Code for Chg Fwd Diagnoses Diabetes mellitus type 2, controlled E11.9 Hypothyroid E03.9 Cellulitis L03.90 Paroxysmal atrial fibrillation I48.0
[2024-12-11 20:00] VITALS: BP 138/71; PULSE 93; RESP 16; TEMP 36.9; O2SAT 93
[2024-12-11 21:03] LABS: Glucose Point of Care 246 mg/dL (70-110)
[2024-12-12] VITALS (8 sets, daily range): BP systolic 112–146; BP diastolic 68–94; PULSE 77–114; RESP 15–19; TEMP 36.4–36.8; O2SAT 94–98
[2024-12-12] MEDS: vancomycin 1,500 MG/300 ML PIGGYBACK 200 MG IV ×2 (01:18→14:32)
[2024-12-12] MEDS: acetaminophen 325 mg Tablet 650 MG PO (01:21)
[2024-12-12] MEDS: piperacillin-tazobactam 3.375 GM in sodium chloride 0.9% (plus) 50 ML IV ×2 (03:20→08:15)
[2024-12-12 04:05] LABS: Basophils # 0.1 10^3/uL (0.0-0.1); Basophils % 0.7 %; Eosinophils # 0.2 10^3/uL (0.0-0.8); Eosinophils % 1.6 %; Lymphocytes # 4.5 10^3/uL (0.8-4.8); Mean Corpuscular HGB Conc 30.8 g/dL (30-55); Mean Corpuscular Hemoglobin 27.9 pg (27-33); Mean Corpuscular Volume 90.7 fl (85-98); Mean Platelet Volume 10.6 fL (7.4-10.4); Monocytes # 0.8 10^3/uL (0.2-0.9); Monocytes % 7.8 %; Neutrophils % 44.1 %; Nucleated Red Blood Cells % 0 %; Platelet Count 253 10^3/cmm (157-399); Red Blood Count 4.08 10^6/uL (3.85-5.65); White Blood Count 10.18 10^3/uL (3.29-11.43)
[2024-12-12 04:29] LABS: Blood Urea Nitrogen 8 mg/dL (6-20); Calcium 8.8 mg/dL (8.5-10.5); Carbon Dioxide 24 mmol/L (22-29); Chloride 104 mmol/L (98-107); Creatinine Clr Calc Pharmacy 151.7163; Glomerular Filtration Rate 106.3 mL/min (90-130); Glucose 106 mg/dL (65-115); Osmolality Calculated 285 mOsm/kg (285-295); Sodium 138 mmol/L (136-145)
[2024-12-12 05:33] LABS: Anion Gap 14.1 (5-19); Potassium 4.1 mmol/L (3.5-5.1)
[2024-12-12] MEDS: heparin 5,000 unit/mL INJ 1 mL 5000 UNIT SUBCUT (06:10)
[2024-12-12] MEDS: levothyroxine 25 mcg Tablet PO (06:10)
[2024-12-12 06:26] LABS: Glucose Point of Care 128 mg/dL (70-110)
[2024-12-12] MEDS: spironolactone 25 mg Tablet PO (08:16)
[2024-12-12 11:14] LABS: Glucose Point of Care 188 mg/dL (70-110)
--- NOTE | 2024-12-12 11:25 | P.PN_ITS ---
Subjective 2 Subjective: Patient seen at bedside's morning. Resting comfortably. Pain is well- controlled. No further progression of cellulitis to left lower extremity. Culture still pending. Showing coag positive Staph aureus. Vitals/I&O/Wt Last Vital Signs Temp 97.8 F 12/12/24 07:55 Pulse 82 12/12/24 07:55 Resp 16 12/12/24 07:55 BP 129/81 12/12/24 07:55 Pulse Ox 97 12/12/24 07:55 O2 Del Method Room Air 12/12/24 07:55 O2 Flow Rate 8 12/10/24 08:54 12/11/24 12/12/24 12/12/24 22:59 06:59 14:59 Intake Total 830 / 1840 300 / 2140 286 / 286 Balance 830 / 1840 300 / 2140 286 / 286 Weight last 48 hrs Weight 255 lb 11.2 oz Weight 255 lb 1.6 oz Physical Exam 2 Narrative: GENERAL: A&O x 3 VASCULAR: DP/PT pulses palpable 2/4 with CFT intact, <3seconds to distal digits DERMATOLOGICAL: Left lateral calcaneal incision well coapted with sutures intact. No evidence of dehiscence. Erythema receding but persistent. No underlying fluctuance. MUSCULOSKELETAL: Minimal tenderness with palpation of joanne-incisional area left lateral calcaneus NEUROLOGICAL: Neurological sensation to the affected foot and ankle is present through L4-S1 dermatomes with no hyper/hypoesthesias, negative Tinel or Valleix's sign IMAGIN view x-rays of the left foot were taken at today's visit and were personally interpreted by me. These radiographs show erosive changes to lateral wall of calcaneus at the level of the lateral tubercle of the calcaneal process. No soft tissue emphysema present. MRI shows diffuse osteomyelitis throughout calcaneus. Data 12/12/24 03:52 12/12/24 03:52 Micro: Microbiology 12/10/24 08:21 Anaerobic Culture - Preliminary Foot - #1 12/10/24 08:21 Gram Stain - Final Other Source Abscess Culture - Preliminary Coag positive Staphylococcus A&P Assessment and plan (1) Abscess of left foot: (2) Type 2 diabetes mellitus: (3) Cellulitis: (4) Osteomyelitis: Plan -Left foot abscess with underlying osteomyelitis -Labs and vitals reviewed -WBC 13.64--> 9.47 -ESR 69 -CRP 243--> 53--> 35 -VSS -Cultures: Pending -Abx Vanco/Zosyn -Diet: Okay for diet -Status post left foot incision and drainage. Improving. No plan for return to OR based on findings at bedside this morning. Patient labs are trending down -Pain Mgmt: Per primary team -Weight bearing: Weightbearing as tolerated in cam boot. -Dressings: Surgical dressing changed at bedside this morning. -Continue current Abx therapy until ID and Sensitivity results -Trend labs -Discharge plan: Given findings of osteomyelitis on MRI patient will need PICC line prior to discharge. Antibiotic recommendations will be made based on intraoperative cultures which are still pending. PICC line has been placed. Awaiting arrangement of outpatient infusions as well as culture results for final antibiotic recommendations. Upon discharge patient is to weight-bear as tolerated in cam boot to left foot. Also recommend follow-up with podiatry within 1 week of discharge from the hospital. -I discussed the severity of calcaneus osteomyelitis with patient and potential implications. IV antibiotics will help to sequester the bone infection. We will continue to monitor this closely in the outpatient setting. Imperative that we have appropriate antibiotics on discharge to prevent rapid progression of infection. Patient verbalized understanding to this. -Podiatry will continue to round on patient daily and provide recommendations PDMP PDMP Reviewed: Not Reviewed Attestations 2 Medical Necessity Statement*: Awaiting antibiotic recommendations and set up of outpatient infusions for antibiotics Coding Level of Care Code Acute Code for [facility] Diagnoses Abscess of left foot L02.612 Type 2 diabetes mellitus E11.9 Cellulitis L03.90 Osteomyelitis M86.9
[2024-12-12] MEDS: insulin lispro 100 unit/1 mL SUBCUT (12:00)
[2024-12-12 16:55] LABS: Glucose Point of Care 117 mg/dL (70-110)
--- NOTE | 2024-12-16 13:53 | PM.DCS ---
Discharge Providers Date of Admission: 12/09/24 16:57 Date of Discharge: 12/12/2024 Attending Provider at Admission: Anthony Garcia MD Attending Provider at Discharge: Mike Singleton Consults: Podiatry Primary Care Provider: Pino Sandoval MD Diagnoses at Discharge Discharge Diagnosis (1) Abscess of left foot: Status: Acute (2) Type 2 diabetes mellitus: Status: Acute (3) Cellulitis: Status: Acute (4) Osteomyelitis: Status: Acute Reason for Visit Reason for Visit: abscess Hospital Course Hospital Course 49-year-old female with a history of DM2 (A1c 9.4%), HTN, hypothyroidism, and atrial fibrillation presented with left calcaneal osteomyelitis. Patient underwent surgical debridement of the left calcaneus for osteomyelitis. Intraoperative findings confirmed osteomyelitis with a spongy, soft bone cortex of the lateral calcaneal wall. 5cc of purulent material was drained. A PICC line was placed for antibiotic administration. Patient received vancomycin and Zosyn during hospitalization. Inflammatory markers were monitored during hospitalization, with CRP improving to 15 and no leukocytosis. The patient's atrial fibrillation remained in normal sinus rhythm throughout her hospitalization. Podiatry was consulted for post-operative management. Patient was discharged on 12/12/2024 on Ertapenem via PICC line for 6 weeks. She was instructed to continue glucose monitoring and resume her prior diabetic medications. Levothyroxine 25 mcg daily was also continued. Patient was informed that cultures had not finalized at the time of discharge and that she needs to follow up with her PCP, Dr. Sandoval, to review the final culture results and adjust the antibiotic regimen if needed. Follow up with podiatry was also recommended as well as weekly monitoring labs. Physical Exam Narrative: Cardiovascular: Regular ryythm, tachycardic. HEENT: Grossly unremarkable CVS: RRR, no murmur, rubs or gallops Chest: CTABL Abd: Soft, NT, ND Ext; Post op on Left foot Discharge Data Studies Completed and Pending Completed Studies During Hospitalization Category Date Time Status CXRP [XR chest 1V portable [id number]] Routine Exams 12/10/24 16:06 Completed Pathology: Surgical [PTH] Routine Pth 12/10/24 08:28 Completed Pending at discharge Category Date Time Status Anaerobic Culture Routine Lab 12/10/24 08:21 Results Radiology Impressions Chest X-Ray 12/10/24 16:06 IMPRESSION: 1. Accentuated cardiac silhouette size and vascularity. See discussion above. 2. No obvious acute consolidation. Suboptimal lung base assessment. Followup including lateral view may be obtained if clinically indicated. 3. Right arm PICC line with tip in the cavoatrial region. Laboratory Results WBC 10.18 10^3/uL (3.29-11.43) 12/12/24 03:52 RBC 4.08 10^6/uL (3.85-5.65) 12/12/24 03:52 Hgb 11.40 g/dL (11.27-16.99) 12/12/24 03:52 Hct 37.0 % (36-47) 12/12/24 03:52 MCV 90.7 fl (85-98) 12/12/24 03:52 MCH 27.9 pg (27-33) 12/12/24 03:52 MCHC 30.8 g/dL (30-55) 12/12/24 03:52 RDW 13.0 % (12.1-15.1) 12/12/24 03:52 Plt Count 253 10^3/cmm (157-399) 12/12/24 03:52 MPV 10.6 fL (7.4-10.4) H 12/12/24 03:52 Neut % (Auto) 44.1 % 12/12/24 03:52 Lymph % (Auto) 44.0 % 12/12/24 03:52 [place] % (Auto) 7.8 % 12/12/24 03:52 Eos % (Auto) 1.6 % 12/12/24 03:52 Baso % (Auto) 0.7 % 12/12/24 03:52 Neut # (Auto) 4.50 10^3/uL (1.8-7.7) 12/12/24 03:52 Lymph # (Auto) 4.5 10^3/uL (0.8-4.8) 12/12/24 03:52 [place] # (Auto) 0.8 10^3/uL (0.2-0.9) 12/12/24 03:52 Eos # (Auto) 0.2 10^3/uL (0.0-0.8) 12/12/24 03:52 Baso # (Auto) 0.1 10^3/uL (0.0-0.1) 12/12/24 03:52 Nucleated RBC % (auto) 0 % 12/12/24 03:52 Nucleated RBCs # 0.0 /100WBC 12/12/24 03:52 ESR 69 mm/hr (0-15) H 12/11/24 09:43 Sodium 138 mmol/L (136-145) 12/12/24 03:52 Potassium 4.1 mmol/L (3.5-5.1) 12/12/24 03:52 Chloride 104 mmol/L (98-107) 12/12/24 03:52 Carbon Dioxide 24 mmol/L (22-29) 12/12/24 03:52 Anion Gap 14.1 (5-19) 12/12/24 03:52 BUN 8 mg/dL (6-20) 12/12/24 03:52 Creatinine 0.6 mg/dL (0.5-0.9) 12/12/24 03:52 GFR Calculation 106.3 mL/min (90-130) 12/12/24 03:52 Glucose 106 mg/dL (65-115) 12/12/24 03:52 POC Glucose 117 mg/dL (70-110) H 12/12/24 16:51 Calculated Osmolality 285 mOsm/kg (285-295) 12/12/24 03:52 Calcium 8.8 mg/dL (8.5-10.5) 12/12/24 03:52 Total Bilirubin 0.5 mg/dL (0.15-1.2) 12/09/24 17:29 AST 25 U/L (0-32) 12/09/24 17:29 ALT 30 U/L (0-33) 12/09/24 17:29 Alkaline Phosphatase 102 U/L (35-105) 12/09/24 17:29 C-Reactive Protein 35.0 mg/L (0.0-4.9) H 12/11/24 09:43 Total Protein 8.1 g/dL (6.6-8.7) 12/09/24 17:29 Albumin 3.8 g/dL (3.5-5.2) 12/09/24 17:29 Globulin 4.3 g/dL (1.3-4.6) 12/09/24 17:29 Procalcitonin 0.15 ng/mL (0-0.5) 12/09/24 17:29 HCG, Qual Negative (Negative) 12/09/24 17:29 Vancomycin Trough 24.4 ug/mL (10-15) H 12/11/24 03:12 Vitals Last Vital Signs Temp 97.6 F 12/12/24 17:22 Pulse 92 12/12/24 17:22 Resp 15 12/12/24 17:22 BP 146/94 12/12/24 17:22 Pulse Ox 97 12/12/24 17:22 O2 Del Method Room Air 12/12/24 16:08 O2 Flow Rate 8 12/10/24 08:54 Discharge Plan Discharge Patient Disposition: Home Condition: Stable Prescriptions: Continued (DME) Diabetic Shoes with heat molded inserts See Rx Instructions .Route .MEDSUPPLY Qty: 1 0RF Rx Instructions: As directed by Mercedes Main glimepiride 4 mg tablet 4 mg PO DAILY Qty: 30 11RF levothyroxine 25 mcg tablet 25 mcg PO DAILY Qty: 90 3RF metformin 500 mg tablet extended release 24 hr 500 mg PO BID Qty: 60 11RF spironolactone 25 mg tablet 25 mg PO DAILY Qty: 30 11RF (DME) CAM Boot See Rx Instructions .Route .MEDSUPPLY Qty: 1 0RF Rx Instructions: As directed (DME) diabetic shoes with custom inserts See Rx Instructions .Route .MEDSUPPLY Qty: 1 0RF Rx Instructions: As directed to the mercedes main Discontinued amoxicillin-pot clavulanate 875-125 mg tablet 1 tab PO BID 7 Days Qty: 14 1RF No Action (DME) crutches See Rx Instructions .Route .MEDSUPPLY Qty: 1 0RF Rx Instructions: As directed Discharge Orders: Discharge Order (Routine); Ordered 12/12/24 Ordered By: Mike Singleton Other Ambulatory Orders: Miscellaneous Procedure (Order) Location: None Selected Ordered By: Mike Singleton Complete Blood Count w/Auto (Routine) Timeframe: 1 Week Location: Determined by Patient Ordered By: Mike Singleton Comprehensive Metabolic Panel (Routine) Timeframe: 1 Day Facility: [facility] - Location: Lab - Main Lab Ordered By: Mike Singleton C Reactive Protein (Routine) Timeframe: 1 Week Facility: [facility] - Location: Lab - Main Lab Ordered By: Mike Singleton Referrals: Francisco Obrien DPM [Physician] - 12/14/24 8:45 am (as directed) Pino Sandoval MD [Primary Care Provider] - 12/19/24 1:20 pm Discharge Diet: As Directed Discharge Activity: Increase activity as tolerated Patient Instructions: Type 2 Diabetes, Osteomyelitis (DC), Acute Wound Care (DC), Incision and Drainage (DC), Opioid Safety, Post Anesthesia Care Discharge Attestations Time Spent in Discharge Care*: greater than 30 min Status at Discharge: Cognitive status at discharge: cognitively intact, Behavioral status at discharge: cooperative, Functional status at discharge: independent ambulation, Overall status at discharge: patient is back to baseline Quality Metrics Clinical Quality Measures [ No reported AMI, CVA or VTE this stay] Coding Level of Care Code Acute Code for Chg Fwd Diagnoses Abscess of left foot L02.612 Type 2 diabetes mellitus E11.9 Cellulitis L03.90 Osteomyelitis M86.9
== END 2024-12-12 16:49 | disposition home or self-care (01) | DRG 629 ==
PROVIDERS: Anesthesiology; Podiatrist Foot & Ankle Surgery; Admitting Provider Obstetrics & Gynecology; PCP Family Medicine; Visit Provider Hospitalist
PROC: 0QBM0ZZ Excision of Left Tarsal, Open Approach (ICD-10-PCS; principal; 2024-12-10 08:00)
DX: E11.69 Type 2 diabetes mellitus with other specified complication (principal); L02.612 Cutaneous abscess of left foot; M86.9 Osteomyelitis, unspecified; L03.116 Cellulitis of left lower limb; E11.65 Type 2 diabetes mellitus with hyperglycemia; Z79.84 Long term (current) use of oral hypoglycemic drugs; I10 Essential (primary) hypertension; E78.5 Hyperlipidemia, unspecified; I48.91 Unspecified atrial fibrillation; E03.9 Hypothyroidism, unspecified
CPT/HCPCS: 36415; 36416; 36573; 36592; 71045; 80048; 80053; 80202; 82962; 84145; 84703; 85025; 85651; 86140; 87070; 87075; 87077; 87186; 87205; 88307; 88311; 93005; 96372; J1644; J1815; J2250; J2405; J2543; J2704; J3010; J3370; J3490; J9999

== ENCOUNTER 2024-12-24 09:09 | Oncology outpatient (recurring) (ONCR) | payer OTHER, SELFPAY ==
[2024-12-13] MEDS: ertapenem 1,000 mg SDV 1000 MG IVP (11:15)
[2024-12-13 11:25] VITALS: BP 138/76; PULSE 60; RESP 16; TEMP 36.6; O2SAT 98
[2024-12-14] MEDS: ertapenem 1,000 mg SDV 1000 MG IVP (11:17)
[2024-12-14 11:31] LABS: Basophils # 0.1 10^3/uL (0.0-0.1); Basophils % 0.7 %; Eosinophils # 0.1 10^3/uL (0.0-0.8); Eosinophils % 0.9 %; Hematocrit 40.9 % (36-47); Lymphocytes # 3.6 10^3/uL (0.8-4.8); Lymphocytes % 32.4 %; Mean Corpuscular HGB Conc 31.3 g/dL (30-55); Mean Corpuscular Hemoglobin 27.9 pg (27-33); Mean Corpuscular Volume 89.3 fl (85-98); Mean Platelet Volume 10.8 fL (7.4-10.4); Monocytes # 0.7 10^3/uL (0.2-0.9); Neutrophils # 6.54 10^3/uL (1.8-7.7); Neutrophils % 58.2 %; Nucleated Red Blood Cells % 0 %; Platelet Count 297 10^3/cmm (157-399); Red Blood Count 4.58 10^6/uL (3.85-5.65); Red Cell Distribution Width 13.1 % (12.1-15.1); White Blood Count 11.23 10^3/uL (3.29-11.43)
[2024-12-14 11:48] LABS: Blood Urea Nitrogen 12 mg/dL (6-20); C Reactive Protein 11.7 mg/L (0.0-4.9); Calcium 9.3 mg/dL (8.5-10.5); Carbon Dioxide 26 mmol/L (22-29); Chloride 102 mmol/L (98-107); Glomerular Filtration Rate 131.1 mL/min (90-130); Glucose 202 mg/dL (65-115); Osmolality Calculated 290 mOsm/kg (285-295); Sodium 137 mmol/L (136-145)
[2024-12-14 11:52] LABS: Anion Gap 13.4 (5-19); Potassium 4.4 mmol/L (3.5-5.1)
[2024-12-15] MEDS: ertapenem 1,000 mg SDV 1000 MG IVP (10:36)
[2024-12-15 10:47] VITALS: BP 112/74; PULSE 66; RESP 16; TEMP 36.3
[2024-12-16] MEDS: ertapenem 1,000 mg SDV 1000 MG IVP (10:32)
[2024-12-16 10:44] VITALS: BP 121/74; PULSE 63; RESP 16; O2SAT 96
[2024-12-17] MEDS: ertapenem 1,000 mg SDV 1000 MG IVP (09:30)
[2024-12-17 09:47] VITALS: BP 112/58; PULSE 90; RESP 18; TEMP 36.4; O2SAT 98
[2024-12-18] MEDS: ertapenem 1,000 mg SDV 1000 MG IVP (09:34)
[2024-12-18 09:36] VITALS: BP 132/93; PULSE 98; RESP 18; TEMP 36.3; O2SAT 99
[2024-12-19 11:35] VITALS: BP 143/89; PULSE 96; RESP 16; TEMP 36.6; O2SAT 96
--- NOTE | 2024-12-19 11:47 | PHA.VACGOAL ---
Vancomycin Goal - Goal Vancomycin Goal:: 15-20 mg/L Vancomycin Indication:: Osteo - Therapy Current therapy:: Other Antibiotic Day of therpy:: Day [1]of [42] . Actual body weight (kg): 249 lb - Data Labs: WBC 11.23 10^3/uL (3.29-11.43) 12/14/24 11:16 RBC 4.58 10^6/uL (3.85-5.65) 12/14/24 11:16 Hgb 12.80 g/dL (11.27-16.99) 12/14/24 11:16 Hct 40.9 % (36-47) 12/14/24 11:16 MCV 89.3 fl (85-98) 12/14/24 11:16 MCH 27.9 pg (27-33) 12/14/24 11:16 MCHC 31.3 g/dL (30-55) 12/14/24 11:16 RDW 13.1 % (12.1-15.1) 12/14/24 11:16 Sodium 137 mmol/L (136-145) 12/14/24 11:16 Potassium 4.4 mmol/L (3.5-5.1) 12/14/24 11:16 Chloride 102 mmol/L (98-107) 12/14/24 11:16 Carbon Dioxide 26 mmol/L (22-29) 12/14/24 11:16 Anion Gap 13.4 (5-19) 12/14/24 11:16 BUN 12 mg/dL (6-20) 12/14/24 11:16 Creatinine 0.5 mg/dL (0.5-0.9) 12/14/24 11:16 GFR Calculation 131.1 mL/min (90-130) H 12/14/24 11:16 Treatment plan:: new consult
[2024-12-19 11:56] LABS: Basophils # 0.1 10^3/uL (0.0-0.1); Basophils % 0.7 %; Eosinophils # 0.1 10^3/uL (0.0-0.8); Eosinophils % 0.8 %; Hematocrit 41.4 % (36-47); Lymphocytes # 3.9 10^3/uL (0.8-4.8); Lymphocytes % 38.2 %; Mean Corpuscular HGB Conc 31.4 g/dL (30-55); Mean Corpuscular Hemoglobin 27.8 pg (27-33); Mean Corpuscular Volume 88.7 fl (85-98); Mean Platelet Volume 10.6 fL (7.4-10.4); Monocytes # 0.6 10^3/uL (0.2-0.9); Monocytes % 6.3 %; Neutrophils % 53.5 %; Nucleated Red Blood Cells % 0 %; Platelet Count 296 10^3/cmm (157-399); Red Blood Count 4.67 10^6/uL (3.85-5.65); Red Cell Distribution Width 13.3 % (12.1-15.1); White Blood Count 10.09 10^3/uL (3.29-11.43)
[2024-12-19] MEDS: ertapenem 1,000 mg SDV 1000 MG IVP (12:08)
[2024-12-19 12:17] LABS: Alanine Aminotransferase 25 U/L (0-33); Alkaline Phosphatase 87 U/L (35-105); Blood Urea Nitrogen 15 mg/dL (6-20); C Reactive Protein 9.5 mg/L (0.0-4.9); Calcium 9.3 mg/dL (8.5-10.5); Carbon Dioxide 26 mmol/L (22-29); Chloride 105 mmol/L (98-107); Creatinine Clr Calc Pharmacy 149.5398; Globulin 3.3 g/dL (1.3-4.6); Glomerular Filtration Rate 106.3 mL/min (90-130); Glucose 164 mg/dL (65-115); Osmolality Calculated 294 mOsm/kg (285-295); Sodium 140 mmol/L (136-145); Total Bilirubin 0.4 mg/dL (0.15-1.2); Total Protein 7.3 g/dL (6.6-8.7)
[2024-12-19 12:20] LABS: Anion Gap 13.6 (5-19); Aspartate Amino Transferase 17 U/L (0-32); Potassium 4.6 mmol/L (3.5-5.1)
[2024-12-20] MEDS: ertapenem 1,000 mg SDV 1000 MG IVP (10:39)
[2024-12-21] MEDS: ertapenem 1,000 mg SDV 1000 MG IVP (08:37)
== END 2025-01-11 23:59 | disposition home or self-care (01) ==
LOC: OPS 12-25
PROVIDERS: PCP Family Medicine; Visit Provider Hospitalist
DX: Z53.9 Procedure and treatment not carried out, unspecified reason (principal)
CPT/HCPCS: 80048; 80053; 85025; 86140; 96374; J1335; J1642

== ENCOUNTER → 2024-12-26 10:25 | Outpatient (BNVA) | payer OTHER, SELFPAY | PROVIDERS: PCP Family Medicine | DX: M86.9 Osteomyelitis, unspecified (principal) | CPT/HCPCS: 80053; 85025; 85651; 86140 ==

== ENCOUNTER → 2025-01-02 16:09 | Outpatient (BNVA) | payer OTHER, SELFPAY | PROVIDERS: PCP Family Medicine | DX: E03.9 Hypothyroidism, unspecified (principal); I10 Essential (primary) hypertension; N18.9 Chronic kidney disease, unspecified; I48.0 Paroxysmal atrial fibrillation; E11.9 Type 2 diabetes mellitus without complications; E11.621 Type 2 diabetes mellitus with foot ulcer; L97.509 Non-pressure chronic ulcer of other part of unspecified foot with unspecified severity | CPT/HCPCS: 80053; 85025; 85651; 86140 ==

== ENCOUNTER → 2025-01-17 14:05 | Outpatient (BNVA) | payer OTHER, SELFPAY | PROVIDERS: PCP Family Medicine | DX: M86.9 Osteomyelitis, unspecified (principal) | CPT/HCPCS: 85025; 86140 ==

== ENCOUNTER → 2025-01-23 13:29 | Outpatient (BNVA) | payer OTHER, SELFPAY | PROVIDERS: PCP Family Medicine | DX: E11.621 Type 2 diabetes mellitus with foot ulcer (principal); L97.509 Non-pressure chronic ulcer of other part of unspecified foot with unspecified severity | CPT/HCPCS: 85025; 85651; 86140 ==

== ENCOUNTER → 2025-01-27 10:52 | Outpatient (BNVA) | payer OTHER, SELFPAY | PROVIDERS: PCP Family Medicine; Visit Provider Family Medicine | DX: M86.9 Osteomyelitis, unspecified (principal); E11.621 Type 2 diabetes mellitus with foot ulcer; L97.509 Non-pressure chronic ulcer of other part of unspecified foot with unspecified severity | CPT/HCPCS: 87070; 87075; 87077; 87184; 87205 ==

== ENCOUNTER → 2025-01-30 08:19 | Outpatient (BNVA) | payer OTHER, SELFPAY | PROVIDERS: PCP Family Medicine | DX: M86.9 Osteomyelitis, unspecified (principal); E11.621 Type 2 diabetes mellitus with foot ulcer; L97.509 Non-pressure chronic ulcer of other part of unspecified foot with unspecified severity | CPT/HCPCS: 80053; 85025; 85651; 86140 ==

== ENCOUNTER → 2025-02-02 08:27 | Outpatient (BNVA) | payer OTHER, SELFPAY | PROVIDERS: PCP Family Medicine; Visit Provider Podiatrist Foot & Ankle Surgery | DX: Z98.890 Other specified postprocedural states (principal); E11.621 Type 2 diabetes mellitus with foot ulcer; L97.509 Non-pressure chronic ulcer of other part of unspecified foot with unspecified severity; L97.521 Non-pressure chronic ulcer of other part of left foot limited to breakdown of skin; M72.2 Plantar fascial fibromatosis; E11.69 Type 2 diabetes mellitus with other specified complication; Z79.84 Long term (current) use of oral hypoglycemic drugs; L03.116 Cellulitis of left lower limb; M86.172 Other acute osteomyelitis, left ankle and foot | CPT/HCPCS: 73630 ==

== ENCOUNTER → 2025-02-07 11:27 | Outpatient (BNVA) | payer OTHER, SELFPAY | PROVIDERS: PCP Family Medicine; Visit Provider Family Medicine | DX: E11.9 Type 2 diabetes mellitus without complications (principal); E11.621 Type 2 diabetes mellitus with foot ulcer; N18.9 Chronic kidney disease, unspecified; L97.509 Non-pressure chronic ulcer of other part of unspecified foot with unspecified severity | CPT/HCPCS: 85025; 86140 ==

== ENCOUNTER → 2025-02-10 11:52 | Outpatient (BNVA) | payer OTHER, SELFPAY | PROVIDERS: PCP Family Medicine; Visit Provider Family Medicine | DX: M72.2 Plantar fascial fibromatosis (principal); M86.9 Osteomyelitis, unspecified; E11.9 Type 2 diabetes mellitus without complications; I48.0 Paroxysmal atrial fibrillation; M19.90 Unspecified osteoarthritis, unspecified site | CPT/HCPCS: 86140 ==

== ENCOUNTER 2025-03-03 09:08 | Emergency (ER) | payer OTHER, SELFPAY ==
--- NOTE | 2025-03-03 09:14 | ECG_ITS ---
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 Measurements Intervals [place] Rate: 134 P: 35 HI: 159 QRS: 56 QRSD: 82 T: 46 QT: 294 QTc: 440 Interpretive Statements SINUS TACHYCARDIA ABNORMAL RHYTHM ECG Compared to ECG 12/09/2024 18:39:33 No significant changes Electronically Signed On 03-05-2025 19:40:19 CDT by Tony Valero M.D. [email or web address] [id number]
[2025-03-03 09:15] VITALS: BP 163/95; PULSE 132; RESP 16; TEMP 37.5; O2SAT 98
--- NOTE | 2025-03-03 09:38 | XR_ITS ---
WS: [id number] Portable AP upright chest, 03/03/2025 Clinical Data: dyspnea/cough Comparison: Portable chest, 12/10/2024. Findings: No nodules, masses or effusions are seen. The heart is enlarged. The pulmonary vascularity is not increased. No pneumonia or pneumothorax is seen. There is an azygos lobe of the lung along with an azygous vein. XR/XR chest 1V portable [id number] Impression: Cardiomegaly.
--- NOTE | 2025-03-03 09:38 | XR_ITS ---
WS: [email or web address] Left foot, 3 views, 03/03/2025 Clinical Data: pain Comparison: Left foot, 02/02/2025 Findings: No fractures or dislocations are seen. No bone destruction or erosion is noted. The joint spaces and soft tissues are normal. There is a plantar spur and Achilles spur. XR/XR foot LT min 3V* [id number] Impression: Negative left foot.
--- NOTE | 2025-03-03 09:38 | XR_ITS ---
WS: [email or web address] Left ankle, 3 views, 03/03/2025 Clinical Data: pain Comparison: None. Findings: No fractures or dislocations are seen. The ankle mortise is normal. The talus and calcaneus are unremarkable. There is soft tissue swelling over the medial and lateral malleolus. There is a plantar spur and an Achilles spur. XR/XR ankle LT min 3V* [id number] Impression: 1. Negative left ankle. 2. Soft tissue swelling over medial and lateral malleolus.
--- NOTE | 2025-03-03 10:12 | W.ED.EXTPRO ---
HPI - Extremity Problem General: Chief complaint: Extremity Injury, Lower Stated complaint: high hr (sent by ramona) Time Seen by Provider: 03/03/25 09:38 History of Present Illness: 49-year-old female presents emergency room with complaint of left heel pain left lower leg swelling. She has had a fever at home over 100 at times she is noticeably tachycardic as well. She went to see her primary care doctor they are concerned because in that heel she previously had a abscess that required surgical incision and drainage. She is diabetic. She denies any chest pain no history of any DVT she does have significant swelling of the left lower leg. Still has a low-grade fever of temp 99.5 on arrival here and tachycardic at 132 sinus tachycardia. No history of any arrhythmias. No chest pain no shortness of breath Associated symptoms: Deny chest pain, fever(s) or rash Related Data Previous Rx's ?Medication ?Instructions ?Recorded Diabetic Shoes with heat molded #1 ea 05/29/23 inserts CAM Boot #1 ea 06/18/23 diabetic shoes with custom inserts #1 ea 11/23/23 glimepiride 4 mg tablet 4 mg PO DAILY #30 tabs 12/05/24 levothyroxine 25 mcg tablet 25 mcg PO DAILY #90 tabs 12/05/24 metformin 500 mg tablet,extended 500 mg PO BID #60 tabs 12/05/24 release 24 hr spironolactone 25 mg tablet 25 mg PO DAILY #30 tabs 12/05/24 crutches #1 ea 12/14/24 levofloxacin 750 mg tablet 750 mg PO DAILY #7 tabs 03/03/25 Allergies Allergy/AdvReac Type Severity Reaction Status Date / Time No Known Allergies Allergy Verified 02/02/25 08:12 Review of Systems Const: Denies: fever(s) or chills Card: Denies: chest pain Resp: Denies: dyspnea GI: Denies: abdominal pain : Denies: dysuria, urinary frequency or urinary urgency Musc: Reports: extremity swelling (Left lower leg); Denies: neck pain or back pain Skin/Breast: Denies: rash PFSH ED PFSH: Medical History Hypothyroid Diabetes mellitus type 2, controlled Social History Smoking and tobacco/nicotine status: never used tobacco/nicotine Physical Exam Const: GENERAL APPEARANCE: cooperative ORIENTATION/CONSCIOUSNESS: Yes awake, Yes oriented to person, Yes oriented to place and Yes oriented to time HENMT: COMMON NORMALS: normocephalic, atraumatic and hearing grossly normal bilaterally HEAD & SCALP: normocephalic and atraumatic Resp: COMMON NORMALS: normal respiratory effort, No retractions, No use of accessory muscles and clear to auscultation bilaterally AUSCULTATION: clear to auscultation bilaterally Cardio: COMMON NORMALS: regular rate, regular rhythm and No murmurs present (Cardio) RATE: regular rate RHYTHM: regular rhythm GI: COMMON NORMALS: Soft to palpation and No hepatosplenomegaly present AUSCULTATION: Yes normoactive bowel sounds PALPATION: Yes Soft to palpation, No Tenderness to palpation present (GI), No Guarding due to palpation present (GI) and Yes No hepatosplenomegaly present Extremity: OTHER: 2+ edema of the left lower leg with a positive Homans no redness no erythema swelling across the dorsum of the foot exquisitely tender. No swelling or inflammation or induration around the previous incision on the lateral aspect of the left heel. Neuro: SENSORIUM/ORIENTATION: Yes oriented to person, Yes oriented to place and Yes oriented to time Skin: COMMON NORMALS: no rashes or lesions noted GENERAL SKIN EXAM: no rashes or lesions noted Course Vital Signs: Vital signs: Vital Signs Temperature 99.5 F 03/03/25 09:15 Pulse Rate 121 H 03/03/25 15:24 Respiratory Rate 21 H 03/03/25 14:30 Blood Pressure 149/74 03/03/25 15:24 Pulse Oximetry 97 03/03/25 15:24 Oxygen Delivery Me thod Room Air 03/03/25 09:15 MDM - Extremity (Nontraumatic) Medical Decision Making Patient presents tachycardic has pain in her foot her x-rays are negative. White count is normal sed rate only minimally elevated. D-dimer slightly elevated which we did because of her tachycardia CTA of her chest is negative for acute PE or any pathology abdomen showed benign exam. I had been in contact with Dr. Galindo and he sees the patient usually in the office earlier in the day he had advised that he would be getting a MRI of her ankle done because she said that or seems to be most of the focus of her pain as her venous duplex was negative. Patient was discharged expeditiously so that she could get to her MRI in time. Unfortunately was able to discuss with her before she left the nurse was able to relay to her our findings. Medical Records I reviewed the patient's medical records. Lab Data I reviewed the patient's lab results. 03/03/25 10:15 03/03/25 10:15 Radiology Impressions Ankle X-Ray 03/03/25 09:38 Impression: 1. Negative left ankle. 2. Soft tissue swelling over medial and lateral malleolus. Chest X-Ray 03/03/25 09:38 Impression: Cardiomegaly. Foot X-Ray 03/03/25 09:38 Impression: Negative left foot. Chest CTA 03/03/25 13:42 IMPRESSION: 1. No evidence of pulmonary embolus. 2. No other acute findings Laboratory Results WBC 11.37 10^3/uL (3.29-11.43) 03/03/25 10:15 RBC 4.73 10^6/uL (3.85-5.65) 03/03/25 10:15 Hgb 13.70 g/dL (11.27-16.99) 03/03/25 10:15 Hct 43.2 % (36-47) 03/03/25 10:15 MCV 91.3 fl (85-98) 03/03/25 10:15 MCH 29.0 pg (27-33) 03/03/25 10:15 MCHC 31.7 g/dL (30-55) 03/03/25 10:15 RDW 14.9 % (12.1-15.1) 03/03/25 10:15 Plt Count 228 10^3/cmm (157-399) 03/03/25 10:15 MPV 10.6 fL (7.4-10.4) H 03/03/25 10:15 Neut % (Auto) 88.6 % 03/03/25 10:15 Lymph % (Auto) 5.5 % 03/03/25 10:15 [place] % (Auto) 4.5 % 03/03/25 10:15 Eos % (Auto) 0.0 % 03/03/25 10:15 Baso % (Auto) 0.4 % 03/03/25 10:15 Neut # (Auto) 10.09 10^3/uL (1.8-7.7) H 03/03/25 10:15 Lymph # (Auto) 0.6 10^3/uL (0.8-4.8) L 03/03/25 10:15 [place] # (Auto) 0.5 10^3/uL (0.2-0.9) 03/03/25 10:15 Eos # (Auto) 0.0 10^3/uL (0.0-0.8) 03/03/25 10:15 Baso # (Auto) 0.0 10^3/uL (0.0-0.1) 03/03/25 10:15 Nucleated RBC % (auto) 0 % 03/03/25 10:15 Nucleated RBCs # 0.0 /100WBC 03/03/25 10:15 ESR 27 mm/hr (0-15) H 03/03/25 10:15 D-Dimer 0.60 ug/mLFEU (0-0.59) H 03/03/25 10:15 Sodium 135 mmol/L (136-145) L 03/03/25 10:15 Potassium 3.9 mmol/L (3.5-5.1) 03/03/25 10:15 Chloride 100 mmol/L (98-107) 03/03/25 10:15 Carbon Dioxide 22 mmol/L (22-29) 03/03/25 10:15 Anion Gap 16.9 (5-19) 03/03/25 10:15 BUN 9 mg/dL (6-20) 03/03/25 10:15 Creatinine 0.6 mg/dL (0.5-0.9) 03/03/25 10:15 GFR Calculation 106.3 mL/min (90-130) 03/03/25 10:15 Glucose 215 mg/dL (65-115) H 03/03/25 10:15 Calculated Osmolality 285 mOsm/kg (285-295) 03/03/25 10:15 Lactic Acid 2.2 mmol/L (0.5-2.2) 03/03/25 10:15 Lactic Acid (Sepsis) 1.5 mmol/L (0.5-2.2) 03/03/25 13:25 Calcium 8.5 mg/dL (8.5-10.5) 03/03/25 10:15 Total Bilirubin 0.7 mg/dL (0.15-1.2) 03/03/25 10:15 AST 17 U/L (0-32) 03/03/25 10:15 ALT 21 U/L (0-33) 03/03/25 10:15 Alkaline Phosphatase 103 U/L (35-105) 03/03/25 10:15 C-Reactive Protein 112.0 mg/L (0.0-4.9) H 03/03/25 10:15 Total Protein 7.4 g/dL (6.6-8.7) 03/03/25 10:15 Albumin 3.7 g/dL (3.5-5.2) 03/03/25 10:15 Globulin 3.7 g/dL (1.3-4.6) 03/03/25 10:15 TSH 2.77 uIU/mL (0.27-4.20) 03/03/25 10:15 Urine Color Yellow (Yellow) 03/03/25 11:26 Urine Appearance Clear (CLEAR) 03/03/25 11:26 Urine pH 6.0 (5-7) 03/03/25 11:26 Ur Specific [place] 1.023 (1.005-1.030) 03/03/25 11:26 Urine Protein 1+ (Negative) A 03/03/25 11:26 Urine Glucose (UA) 1+ (Normal) H 03/03/25 11:26 Urine Ketones Trace (Negative) 03/03/25 11: Urine Blood 2+ (Negative) A 03/03/25 11:26 Urine Nitrate Negative (Negative) 03/03/25 11: Urine Bilirubin Negative (Negative) 03/03/25 11: Urine Urobilinogen 1.0 mg/dL (Negative) 03/03/25 11:26 Ur Leukocyte Esterase Negative (Negative) 03/03/25 11:26 Urine RBC >100 /hpf (0-2) H 03/03/25 11:26 Urine WBC 0-5 /hpf (0-5) 03/03/25 11:26 Ur Squamous Epith Cells 0-5 /hpf (0-5) 03/03/25 11: Amorphous Sediment Not Reportable 03/03/25 11:26 Urine Bacteria None seen /hpf (NONE) 03/03/25 11:26 Hyaline Casts 0-4 /lpf H 03/03/25 11:26 All radiology interpretation(s) finalized by discharge Discharge Plan Discharge Patient Disposition: Home Clinical Impression: Left ankle pain, Diabetes mellitus type 2, controlled, Tachycardia Condition: Stable Prescriptions: No Action (DME) Diabetic Shoes with heat molded inserts See Rx Instructions .Route .MEDSUPPLY Qty: 1 0RF Rx Instructions: As directed by Mercedes Etelvina glimepiride 4 mg tablet 4 mg PO DAILY Qty: 30 11RF levothyroxine 25 mcg tablet 25 mcg PO DAILY Qty: 90 3RF metformin 500 mg tablet extended release 24 hr 500 mg PO BID Qty: 60 11RF spironolactone 25 mg tablet 25 mg PO DAILY Qty: 30 11RF (DME) crutches See Rx Instructions .Route .MEDSUPPLY Qty: 1 0RF Rx Instructions: As directed (DME) CAM Boot See Rx Instructions .Route .MEDSUPPLY Qty: 1 0RF Rx Instructions: As directed (DME) diabetic shoes with custom inserts See Rx Instructions .Route .MEDSUPPLY Qty: 1 0RF Rx Instructions: As directed to the mercedes etelvina levofloxacin 750 mg tablet 750 mg PO DAILY Qty: 7 0RF Discharge Orders: Discharge ED (Routine); Ordered 03/03/25 Ordered By: Bakari Longoria Referrals: Pino Sandoval MD [Primary Care Provider, Family Practice] Discharge Diet: Usual diet Discharge Activity: Increase activity as tolerated Patient Instructions: Opioid Safety, Pain Management Activity Restrictions/Additional Instructions: Thank you for choosing [facility] for your healthcare needs today. It is very important that you follow up as instructed or that you return to the Emergency Department should you have concerns or if your condition changes or worsens in any way. You are seen in the emergency room the rapid heart rate and foot pain your workup did not show signs of infection in the foot at this time. Examination for heart and lung causes for the rapid heart rate also so far have been negative. Dr. Galindo had contacted me while you were here and we had discussed your case if workup was negative you want you have an MRI of your foot after you have been discharged. He has made arrangements for the scan. Staff will take you to the radiology department. 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
[2025-03-03 10:25] LABS: Basophils % 0.4 %; Hematocrit 43.2 % (36-47); Lymphocytes # 0.6 10^3/uL (0.8-4.8); Lymphocytes % 5.5 %; Mean Corpuscular HGB Conc 31.7 g/dL (30-55); Mean Corpuscular Volume 91.3 fl (85-98); Mean Platelet Volume 10.6 fL (7.4-10.4); Monocytes # 0.5 10^3/uL (0.2-0.9); Monocytes % 4.5 %; Neutrophils # 10.09 10^3/uL (1.8-7.7); Neutrophils % 88.6 %; Nucleated Red Blood Cells % 0 %; Platelet Count 228 10^3/cmm (157-399); Red Blood Count 4.73 10^6/uL (3.85-5.65); Red Cell Distribution Width 14.9 % (12.1-15.1); White Blood Count 11.37 10^3/uL (3.29-11.43)
--- NOTE | 2025-03-03 10:30 | USCV_ITS ---
[place], Jacquelyn Age: 49 Gender: F : 1975 Exam Date: 03/03/2025 10:42 Ordering Phys: Bakari Longoria DO Technologist: JOSE Exam Location: [facility] [place] Indication: LE Pain/Swelling HISTORY: Lower extremity pain. Lower extremity swelling. PROCEDURES: Venous duplex imaging was performed in only the left lower extremity. The following venous structures were evaluated: common femoral vein, profunda vein, proximal portion of the greater saphenous vein, superficial femoral vein, and the popliteal vein. In addition, the posterior tibial and peroneal trunk were evaluated. Serial compression, augmentation maneuvers, and spectral Doppler flow evaluation were performed. FINDINGS: No evidence of DVT seen in any vessel visualized at this time. CONCLUSIONS No evidence of left lower extremity DVT. Wesley Bruce MD (Electronically Signed) Final Date: 03 March 2025 11:59 S
[2025-03-03 10:44] LABS: Lactic Sepsis W/Reflex 2.2 mmol/L (0.5-2.2)
[2025-03-03 10:53] LABS: Alanine Aminotransferase 21 U/L (0-33); Albumin Level 3.7 g/dL (3.5-5.2); Alkaline Phosphatase 103 U/L (35-105); Anion Gap 16.9 (5-19); Aspartate Amino Transferase 17 U/L (0-32); Blood Urea Nitrogen 9 mg/dL (6-20); Calcium 8.5 mg/dL (8.5-10.5); Carbon Dioxide 22 mmol/L (22-29); Chloride 100 mmol/L (98-107); Creatinine Clr Calc Pharmacy 149.8642; Globulin 3.7 g/dL (1.3-4.6); Glomerular Filtration Rate 106.3 mL/min (90-130); Glucose 215 mg/dL (65-115); Osmolality Calculated 285 mOsm/kg (285-295); Potassium 3.9 mmol/L (3.5-5.1); Sodium 135 mmol/L (136-145); Total Bilirubin 0.7 mg/dL (0.15-1.2); Total Protein 7.4 g/dL (6.6-8.7)
[2025-03-03 11:00] VITALS: BP 152/103; PULSE 128; O2SAT 98
[2025-03-03] MEDS: sodium chloride 0.9% 1,000 ML 999 ML IV (11:40)
[2025-03-03 11:46] LABS: Erythrocyte Sedimentation Rate 27 mm/hr (0-15)
[2025-03-03 12:01] LABS: Bilirubin Urine Negative (Negative); Blood Urine 2+ (Negative); Glucose Urine UA 1+ (Normal); Ketones Urine Trace (Negative); Leukocyte Esterase Urine Negative (Negative); Nitrate Urine Negative (Negative); Protein Urine 1+ (Negative); Specific Gravity, Urine 1.023 (1.005-1.030); Urine Appearance Clear (CLEAR); Urine Color Yellow (Yellow)
[2025-03-03 12:04] LABS: Add Urine Microscopic? YES; Bacteria Urine None Seen /hpf; Hyaline Casts Urine 0-4 /lpf; RBC Urine >100 /hpf (0-2); Squamous Epithelial Cell Urine 0-5 /hpf (0-5); WBC Urine 0-5 /hpf (0-5)
[2025-03-03 12:07] LABS: Reflex Lactate Order REFLEX LACTIC ORDERD; Thyroid Stimulating Hormone 2.77 uIU/mL (0.27-4.20)
[2025-03-03 12:10] LABS: Add Urine Culture? Yes
[2025-03-03 12:30] VITALS: BP 148/81; PULSE 120; RESP 27; O2SAT 95
--- NOTE | 2025-03-03 12:55 | ECG_ITS ---
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 Measurements Intervals [place] Rate: 125 P: 38 [place]: 166 QRS: 53 QRSD: 85 T: 41 QT: 307 QTc: 443 Interpretive Statements SINUS TACHYCARDIA LOW QRS VOLTAGE IN PRECORDIAL LEADS [QRS DEFLECTION < 1.0 mV IN CHEST LEADS] ABNORMAL RHYTHM ECG Compared to ECG 12/09/2024 18:39:33 No significant changes Electronically Signed On 03-05-2025 19:30:05 CDT by Tony Valero M.D. [email or web address] [id number]
[2025-03-03 13:00] VITALS: BP 161/96; PULSE 126; RESP 25; O2SAT 99
--- NOTE | 2025-03-03 13:42 | CT_ITS ---
WS: [id number] CTA OF THE CHEST WITH PULMONARY EMBOLISM PROTOCOL TECHNIQUE: High-resolution contrast enhanced CTA of the chest with coronal and sagittal reformatted images with pulmonary embolism protocol. MIP images are also reviewed. CLINICAL INFORMATION: Tachycardia shortness of breath COMPARISON: None. DLP: 471.[address] scans at [facility] use at least one of these dose optimization techniques: automated exposure control; mA and/or kV adjustment per patient size (includes targeted exams where dose is matched to clinical indication); or iterative reconstruction. FINDINGS: Proximal main pulmonary arteries are normal. Normal segmental and subsegmental pulmonary arteries. No evidence of pulmonary embolus. Normal caliber thoracic aorta. No mediastinal or hilar lymphadenopathy. No axillary lymphadenopathy. Lungs are well aerated. No acute pulmonary infiltrates. Azygos fissure. Fatty liver. Hepatomegaly. Adrenal glands are normal. Small esophageal hiatal hernia. CT/CT angio chest PE protcl [id number] IMPRESSION: 1. No evidence of pulmonary embolus. 2. No other acute findings
[2025-03-03 13:51] LABS: Lactic Acid level (Lactate) 1.5 mmol/L (0.5-2.2)
[2025-03-03] MEDS: iohexol 350 mg/mL 500 mL Btl (per mL) IV (14:14)
[2025-03-03 14:30] VITALS: BP 155/93; PULSE 126; RESP 21; O2SAT 99
[2025-03-03 15:24] VITALS: BP 149/74; PULSE 121; O2SAT 97
== END 2025-03-03 15:24 | disposition home or self-care (01) ==
PROVIDERS: Emergency Provider Family Medicine; PCP Family Medicine
DX: M25.572 Pain in left ankle and joints of left foot (principal); E11.9 Type 2 diabetes mellitus without complications; R00.0 Tachycardia, unspecified; Z79.84 Long term (current) use of oral hypoglycemic drugs
CPT/HCPCS: 36415; 71045; 71275; 73610; 73630; 80053; 81001; 83605; 84443; 85025; 85378; 85651; 86140; 87040; 87086; 93005; 93971; 99285; J7030

== ENCOUNTER 2025-03-03 15:39 | Outpatient (CLI) | payer OTHER, SELFPAY ==
--- NOTE | 2025-03-03 15:30 | MRR_ITS ---
PROCEDURE INFORMATION: Exam: MR Left Lower Extremity Joint Without and With Contrast; Ankle Exam date and time: 03/03/2025 3:59 PM Age: 49 years old Clinical indication: Left; Prior surgery; Surgery date: 6+ months; Surgery type: Lt ankle osteo; Ankle pain/ swelling/ HX of osteomyelitis. TECHNIQUE: Imaging protocol: Magnetic resonance imaging of the left lower extremity without and with contrast. Exam focused on the ankle. Contrast material: MULTIHANCE; Contrast volume: 20 ml; Contrast route: INTRAVENOUS (IV); COMPARISON: CR XR ankle LT min 3V* [id number] 03/03/2025 9:52 AM FINDINGS: Lateral hindfoot scar/wound extending along the plantar aspect of the calcaneus with erosive chains concerning for osteomyelitis (for example, images 7-10 of series 9 and images 11-18 of series 11). Erosion predominantly involves the plantar aspect of the body/posterior process in the region of a plantar spur, the extent of which is greater than that previously visualized in November 2024, possibly reflecting chronic ongoing osteomyelitis. There is extensive marrow edema of the midfoot. Moderate talonavicular joint effusion with synovitis and marrow edema on either side of the joint raising the question of septic joint. No evidence of erosion/osteomyelitis in this region at this time. Question subchondral insufficiency fracture of the navicular laterally (image 12 of series 11 and image 15 of series 8). There may be a component of neuropathic change though septic midfoot would be difficult to exclude in the proper clinical setting given the midfoot joint effusions and marrow edema which is new since November 2024. Low-grade interstitial tear of the peroneus brevis tendon. High-grade partial tear of the plantar fascia, particularly involving the central cord which is worsened since November 2024. Tendons are otherwise intact. There is diffuse soft tissue edema without discrete fluid collection to suggest abscess. MR/MR ankle LT wo/w con [id number] IMPRESSION: 1. Findings concerning for chronic ongoing osteomyelitis of the plantar aspect of the calcaneus. 2. Extensive marrow edema of the midfoot with joint effusions concerning for septic joint. There may be a component of neuropathic change. 3. High-grade tear of the plantar fascia near the calcaneal insertion, worsened since November 2024. 4. Suspected nondisplaced insufficiency/subchondral fracture of the navicular. 5. Extensive soft tissue edema without discrete fluid collection to suggest abscess. The findings were verbally communicated by telephone with Dr. BURCH at 5:54 PM CDT on 03/03/2025.
[2025-03-03] MEDS: gadobenate dimeglumine 20 mL vial IV (16:25)
== END 2025-03-03 15:40 | disposition home or self-care (01) ==
LOC: RAD 15:39
PROVIDERS: PCP Family Medicine; Visit Provider Family Medicine
DX: M86.672 Other chronic osteomyelitis, left ankle and foot (principal); S96.812A Strain of other specified muscles and tendons at ankle and foot level, left foot, initial encounter; X58.XXXA Exposure to other specified factors, initial encounter
CPT/HCPCS: 73723; A9577

== ENCOUNTER 2025-03-03 19:40 | Inpatient (IN) | payer OTHER, SELFPAY ==
[2025-03-03 19:58] VITALS: BMI 38.0
[2025-03-03 20:31] LABS: Glucose Point of Care 243 mg/dL (70-110)
[2025-03-03 20:35] VITALS: BP 116/75; PULSE 116; RESP 18; TEMP 36.6; O2SAT 96
--- NOTE | 2025-03-03 20:47 | PM.CONSULT ---
Providers/Reason For Consult Consulting Physician/Specialty*: Lupe Del Castillo.P.M. Reason for Consult*: Left foot edema, suspected osteomyelitis Attending Physician: Jada Martínez MD Primary Care Provider: Pino Sandoval MD History of Present Illness History of Present Illness Patient is a 49-year-old female with a history of type 2 diabetes mellitus and prior left heel diabetic foot ulceration. She underwent incision and drainage with cortical bone windowing of the lateral calcaneus on 12/10/2024 for a left heel abscess. Postoperatively, she completed a course of IV antibiotics via PICC line and transitioned to oral Zyvox. Her wound fully healed. Since that time, she has had persistent left heel pain, initially attributed to plantar fasciitis likely related to prolonged CAM boot immobilization and offloading. Over the past month, her pain has progressively worsened. She reported experiencing chills yesterday, which she described as the worst she has had, and also noted that her left ankle becomes significantly more swollen by the end of the day?describing it as appearing nearly three times its usual size. She denies any current fevers, chest pain, or shortness of breath. She was directed to the emergency department earlier today by her PCP main concern was left foot infection.. MRI obtained this afternoon also was concerning for possible septic arthritis of midfoot. This coupled with increasing inflammatory markers and patient's subjective fever, chills and general malaise warranted admission for IV antibiotics and further workup. Review of Systems General: Reports: 10 or more systems reviewed and unremarkable except in HPI and below Const: Denies: fever(s), chills, body aches or change in appetite Eyes: Denies: change in vision or blurry vision Card: Denies: chest pain, palpitations or irregular heart rhythm Resp: Denies: dyspnea GI: Denies: abdominal pain, nausea, vomiting or diarrhea Musc: Reports: joint stiffness Skin/Breast: Reports: non-healing lesions and lesions Neuro: Reports: numbness in extremities Medications/Allergies Home Medications ?Medication ?Instructions ?Recorded ?Confirmed ?Last Taken ?Type Diabetic Shoes with heat molded #1 ea 05/29/23 03/03/25 Unknown Rx inserts CAM Boot #1 ea 06/18/23 03/03/25 Unknown Rx diabetic shoes with custom inserts #1 ea 11/23/23 03/03/25 Unknown Rx glimepiride 4 mg tablet 4 mg PO DAILY #30 tabs 12/05/24 03/03/25 Unknown Rx levothyroxine 25 mcg tablet 25 mcg PO DAILY #90 tabs 12/05/24 03/03/25 Unknown Rx metformin 500 mg tablet,extended 500 mg PO BID #60 tabs 12/05/24 03/03/25 Unknown Rx release 24 hr spironolactone 25 mg tablet 25 mg PO DAILY #30 tabs 12/05/24 03/03/25 Unknown Rx crutches #1 ea 12/14/24 03/03/25 Unknown Rx levofloxacin 750 mg tablet 750 mg PO DAILY #7 tabs 03/03/25 03/03/25 Unknown Rx Allergies Allergy/AdvReac Type Severity Reaction Status Date / Time No Known Allergies Allergy Verified 02/02/25 08:12 PFSH Acute PFSH: Medical History Hypothyroid Diabetes mellitus type 2, controlled Social History Smoking and tobacco/nicotine status: never used tobacco/nicotine Vitals/I&O/Wt Weight last 48 hrs Weight 551 lb 2.49 oz Physical Exam Narrative: BELOW IS A FOCUSED LOWER EXTREMITY EXAM VASCULAR: DP/PT pulses palpable 2/4 with CFT intact, <3 seconds to distal digits DERMATOLOGICAL: No open wounds or ulcerations noted to the left foot. Skin turgor is within normal limits. Mild edema present compared to contralateral limb. No erythema or drainage. MUSCULOSKELETAL: Mild tenderness with palpation of medial navicular tuberosity and plantar calcaneus at origin of plantar fascia. No pain with palpation of lateral calcaneal wall at prior incision site. No tenderness with ankle or subtalar joint range of motion. Ankle and hindfoot ROM within normal limits. 5/5 muscle strength in all quadrants. NEUROLOGICAL: Neurological sensation to the left foot and ankle is present through L4-S1 dermatomes with no hyper/hypoesthesias, negative Tinel or Valleix's sign IMAGING: MRI of the left foot obtained today shows marrow edema of the plantar calcaneus concerning for chronic osteomyelitis; associated midfoot edema with joint effusion concerning for possible septic joint; high-grade plantar fascia tear at its calcaneal insertion (worsened since November); possible nondisplaced navicular insufficiency fracture. No discrete fluid collection to suggest abscess A&P Assessment and plan (1) Osteomyelitis: (2) Type 2 diabetes mellitus: (3) Left ankle pain: Plan -Presenting with worsening left heel pain; concern for chronic osteomyelitis, plantar fascia rupture, and midfoot joint involvement -Labs and vitals reviewed -WBC 11.3 -ESR 27 -CRP 112 -HR 121 -RR 21 -Tmax 99.5?F -BP 149/74 -Cultures Klebsiella and Pseudomonas from 01/27/25 (sensitive to Levaquin); MRSA from 12/10/24 (sensitive to Zyvox) -Abx Broad-spectrum empiric antibiotics to be initiated -Diet: Regular from podiatry standpoint -Pain Mgmt: Subjectively improved today; continue supportive measures -Weight bearing: Nonweightbearing left lower extremity -Dressings: None required at present; no open wounds -Continue current Abx therapy until ID and Sensitivity results -Trend labs -Discharge plan: May require short-term immobilization post-discharge depending on pathology -Based on current MRI findings, midfoot marrow edema is believed to be reactive and likely due to altered biomechanics following rupture of the plantar fascia. However, marrow edema involving the calcaneus remains concerning for underlying chronic osteomyelitis. In order to establish a definitive diagnosis and direct long-term antibiotic management, we will proceed with bone biopsy of the calcaneus using a Jamshidi needle at bedside on 03/04/2025. Pathology and culture results from this procedure will guide further treatment decisions, including the need for PICC line and extended IV antibiotic therapy. -Podiatry will continue to round on patient daily and provide recommendations PDMP PDMP Reviewed: Not Reviewed Coding Level of Care Code Acute Code for [facility] Fwd Diagnoses Osteomyelitis M86.9 Type 2 diabetes mellitus E11.9 Left ankle pain M25.572
--- NOTE | 2025-03-03 21:08 | XRR_ITS ---
PROCEDURE INFORMATION: Exam: XR Chest Exam date and time: 03/04/2025 8:29 AM Age: 49 years old Clinical indication: Fever; Additional info: Systemic infection TECHNIQUE: Imaging protocol: Radiologic exam of the chest. Views: 2 views. COMPARISON: CT angio chest PE protcl [id number] 03/03/2025 1:58 PM FINDINGS: Lungs: There is a right azygos fissure. There is no evidence of focal pulmonary consolidation. Pleural spaces: Unremarkable. No pleural effusion. No pneumothorax. Heart/Mediastinum: Unremarkable. No cardiomegaly. Bones/joints: The thoracic spine demonstrates mild degenerative changes at multiple levels. XR/XR chest 2V* [id number] IMPRESSION: No acute cardiopulmonary process.
[2025-03-03] MEDS: pantoprazole 40 mg SDV IVP (21:56)
[2025-03-03] MEDS: heparin 5,000 unit/mL INJ 1 mL 5000 UNIT SUBCUT (21:56)
[2025-03-03] MEDS: sodium chloride 0.9% 1,000 ML 75 ML IV (21:56)
--- NOTE | 2025-03-03 22:27 | ECG_ITS ---
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 Measurements Intervals [place] Rate: 109 P: 59 IN: 200 QRS: 69 QRSD: 96 T: 52 QT: 350 QTc: 472 Interpretive Statements SINUS TACHYCARDIA LOW QRS VOLTAGE IN PRECORDIAL LEADS [QRS DEFLECTION < 1.0 mV IN CHEST LEADS] ABNORMAL RHYTHM ECG Compared to ECG 03/03/2025 12:55:32 No significant changes Electronically Signed On 03-05-2025 19:36:19 CDT by Tony Valero M.D. [email or web address]
[2025-03-03 22:59] LABS: Phosphorus 2.8 mg/dL (2.5-4.5)
[2025-03-03 23:43] VITALS: BP 124/80; PULSE 108; RESP 17; TEMP 36.9; O2SAT 97
--- NOTE | 2025-03-04 00:04 | PM.HP ---
Providers/Chief Complaint Admitting Physician: Jada Martínez MD/Dr Graham Primary Care Provider: Pino Sandoval MD Chief Complaint: Osteomylitis Dr Obrien/ Dr Martínez History of Present Illness Jacquelyn Marin is a 49 year old female with medical history significant for diabetes on oral metformin glipizide and glimepiride now with MRI finding of what looks like osteomyelitis of the left ankle region patient also have a right plantar aspect of the great toe wound does seem to have been infected. Patient had not related this to the public health registrar. Patient is in with direct admission for the public health registrar to see her in the morning For possible biopsy of the left ankle region osteomyelitis for more thorough evaluation. Lab Aide will be seeing the right great toe as well that is noted to be a wound bed crusted quite open. Patient meets inpatient criteria and this may depend on the business solutions consultant biopsy done and further optimization and will be coming from the public health registrar It is worth noting that patient had been running fever and with associated tachycardia in the 130s at home the last time the fever broke was this morning. Patient at this time has been pancultured from blood and urine. We will hold antibiotics at this time till after the biopsy tomorrow morning Dr. Obrien is going to perform. Review of Systems Narrative: System review upon 10 organ system review were remarkable for neuropathy and diabetic wound of the lower extremities. Medications/Allergies Home Medications ?Medication ?Instructions ?Recorded ?Confirmed ?Last Taken ?Type Diabetic Shoes with heat molded #1 ea 05/29/23 03/03/25 Unknown Rx inserts diabetic shoes with custom inserts #1 ea 11/23/23 03/03/25 Unknown Rx glimepiride 4 mg tablet 4 mg PO DAILY #30 tabs 12/05/24 03/03/25 03/02/25 20:00 Rx levothyroxine 25 mcg tablet 25 mcg PO DAILY #90 tabs 12/05/24 03/03/25 03/02/25 20:00 Rx metformin 500 mg tablet,extended 500 mg PO BID #60 tabs 12/05/24 03/03/25 03/02/25 20:00 Rx release 24 hr spironolactone 25 mg tablet 25 mg PO DAILY #30 tabs 12/05/24 03/03/25 03/02/25 20:00 Rx levofloxacin 750 mg tablet 750 mg PO DAILY #7 tabs 03/03/25 03/03/25 Unknown Rx Allergies Allergy/AdvReac Type Severity Reaction Status Date / Time No Known Allergies Allergy Verified 02/02/25 08:12 PFSH Acute PFSH: Medical History Hypothyroid Diabetes mellitus type 2, controlled Social History Smoking and tobacco/nicotine status: never used tobacco/nicotine Vitals/I&O/Wt Last Vital Signs Temp 98.4 F 03/03/25 23:43 Pulse 108 H 03/03/25 23:43 Resp 17 03/03/25 23:43 BP 124/80 03/03/25 23:43 Pulse Ox 97 03/03/25 23:43 O2 Del Method Room Air 03/03/25 23:43 03/03/25 03/03/25 03/04/25 14:59 22:59 06:59 Intake Total 0 / 0 Balance 0 / 0 Weight last 48 hrs Weight 113.398 kg Physical Exam Narrative: Generally patient is good looks healthy and found to be in no apparent distress except for febrile illness at home HEENT normocephalic/atraumatic neck neck is supple cardiovascular heart rate is regular lungs are clear bilaterally abdomen is soft nontender nondistended unremarkable extremities intact no edema. However she has left ankle osteomyelitis possibly no open wound right great toe has a wound that is crusted and infection looking Data 03/04/25 04:48 03/04/25 04:48 A&P Assessment and plan (1) Left ankle pain: Patient noted to have left ankle osteomyelitis with some pain Podiatry is going to see the patient today to decide what to do in a way of either biopsy to be sure that is an actual osteomyelitis - It was been noted patient had had fever with tachycardia and the plan is a day procedure first and then antibiotics coverage the podiatry. - For this reason patient is not placed on any antibiotics overnight awaiting podiatry procedure. - Patient is not recommended to stay n.p.o. after midnight by the podiatry must follow through and optimize the plan of the podiatry. (2) Tachycardia: Tachycardia had resolved since the fever broke yesterday morning - Patient was having heart rate in the 130s when the fever was on for this patient. - Must continue to follow through and optimize - Patient had been pancultured from blood in the urine but must be on antibiotics but that would be after the podiatry had done either biopsy or playing through with what he has to do today with the patient. - Lab Aide have told the patient that is after the procedure that he will put the patient on antibiotics (3) Osteomyelitis: Osteomyelitis that been talked about is that of the left ankle - Blood cultures have been done we will follow through with the public health registrar recommendation. Lab Aide will be seeing patient this morning. (4) Type 2 diabetes mellitus: The patient euglycemic Place hypoglycemic protocol Tight blood sugar control very important the care of this patient - Case has been extensively discussed with the patient for the need of much controlled blood sugar for future health. (5) Abrasion, right great toe, subsequent encounter: Podiatry will be seeing this for this patient and see if there is anything to do for incision and drainage - Patient aware and fully discussed that the attention of the podiatry should be directed this when the patient is being taken care of for the left ankle possible for osteomyelitis Plan GI and DVT prophylaxis in place PDMP PDMP Reviewed: Last Reviewed 03/04/25 00:27 by Ivette Graham MD Attestations Medical Necessity Statement*: Patient with osteomyelitis of the left ankle site of a prior surgery. And right great toe ventral portion with wound that had been crusted looking infected requiring consultation of the consultants for an incision and drainage of biopsy of the area of osteomyelitis to be completely show. Patient needs 2 midnights meets inpatient care Coding Level of Care Code 87094 Diagnoses Left ankle pain M25.572 Tachycardia R00.0 Osteomyelitis M86.9 Type 2 diabetes mellitus E11.9 Abrasion, right great toe, subsequent encounter S90.411D Time Spent (min) 50
[2025-03-04 02:10] LABS: Bilirubin Urine Negative (Negative); Blood Urine 3+ (Negative); Glucose Urine UA 2+ (Normal); Ketones Urine Trace (Negative); Leukocyte Esterase Urine Negative (Negative); Nitrate Urine Negative (Negative); Protein Urine 1+ (Negative); Urine Appearance Cloudy (CLEAR); Urine Color Dark Yellow (Yellow); pH Urine 5.5 (5-7)
[2025-03-04 02:18] LABS: Bacteria Urine None Seen /hpf; RBC Urine 51-100 /hpf (0-2); Squamous Epithelial Cell Urine 0-5 /hpf (0-5); WBC Urine 0-5 /hpf (0-5)
[2025-03-04 02:21] LABS: Specific Gravity, Urine 1.052 (1.005-1.030)
[2025-03-04 04:00] VITALS: BP 116/69; PULSE 96; RESP 15; TEMP 36.4; O2SAT 97
[2025-03-04 05:13] LABS: Basophils % 0.6 %; Eosinophils % 0.8 %; Hematocrit 37.1 % (36-47); Lymphocytes # 1.5 10^3/uL (0.8-4.8); Lymphocytes % 29.9 %; Mean Corpuscular HGB Conc 32.3 g/dL (30-55); Mean Corpuscular Hemoglobin 29.1 pg (27-33); Mean Platelet Volume 10.7 fL (7.4-10.4); Monocytes # 0.6 10^3/uL (0.2-0.9); Monocytes % 11.7 %; Neutrophils # 2.74 10^3/uL (1.8-7.7); Neutrophils % 56.2 %; Nucleated Red Blood Cells % 0 %; Platelet Count 201 10^3/cmm (157-399); Red Blood Count 4.12 10^6/uL (3.85-5.65); Red Cell Distribution Width 15.2 % (12.1-15.1); White Blood Count 4.88 10^3/uL (3.29-11.43)
[2025-03-04 05:32] LABS: Alanine Aminotransferase 26 U/L (0-33); Albumin Level 3.2 g/dL (3.5-5.2); Alkaline Phosphatase 90 U/L (35-105); Anion Gap 14.6 (5-19); Aspartate Amino Transferase 24 U/L (0-32); Blood Urea Nitrogen 7 mg/dL (6-20); Calcium 8.1 mg/dL (8.5-10.5); Carbon Dioxide 21 mmol/L (22-29); Chloride 103 mmol/L (98-107); Creatinine Clr Calc Pharmacy 155.2572; Globulin 3.1 g/dL (1.3-4.6); Glomerular Filtration Rate 106.3 mL/min (90-130); Glucose 244 mg/dL (65-115); Magnesium 1.7 mg/dL (1.7-2.3); Osmolality Calculated 286 mOsm/kg (285-295); Potassium 3.6 mmol/L (3.5-5.1); Sodium 135 mmol/L (136-145); Total Bilirubin 0.3 mg/dL (0.15-1.2); Total Protein 6.3 g/dL (6.6-8.7)
[2025-03-04 06:46] LABS: Glucose Point of Care 212 mg/dL (70-110)
[2025-03-04 07:45] VITALS: BP 145/82; PULSE 105; RESP 18; TEMP 36.8; O2SAT 97
[2025-03-04] MEDS: glimepiride 2 mg Tablet 4 MG PO (08:55)
[2025-03-04] MEDS: acetaminophen 325 mg Tablet 650 MG PO ×2 (08:55→17:34)
[2025-03-04] MEDS: spironolactone 25 mg Tablet PO (08:55)
[2025-03-04] MEDS: pantoprazole DR 40 mg Tablet PO (08:55)
[2025-03-04] MEDS: levothyroxine 25 mcg Tablet PO (08:56)
[2025-03-04] MEDS: insulin lispro 100 unit/1 mL SUBCUT ×3 (08:56→21:42)
[2025-03-04] MEDS: metformin XR 500 MG Tablet PO ×2 (08:56→17:34)
[2025-03-04] MEDS: heparin 5,000 unit/mL INJ 1 mL 5000 UNIT SUBCUT ×2 (08:56→21:41)
--- NOTE | 2025-03-04 10:47 | PHA.VACGOAL ---
Vancomycin Goal - Goal Vancomycin Goal:: 15-20 mg/L Vancomycin Indication:: Osteo - Therapy Day of therpy:: Day []of [] . Actual body weight (kg): 266 lb 9.6 oz - Data Labs: WBC 4.88 10^3/uL (3.29-11.43) 03/04/25 04:48 RBC 4.12 10^6/uL (3.85-5.65) 03/04/25 04:48 Hgb 12.00 g/dL (11.27-16.99) 03/04/25 04:48 Hct 37.1 % (36-47) 03/04/25 04:48 MCV 90.0 fl (85-98) 03/04/25 04:48 MCH 29.1 pg (27-33) 03/04/25 04:48 MCHC 32.3 g/dL (30-55) 03/04/25 04:48 RDW 15.2 % (12.1-15.1) H 03/04/25 04:48 Sodium 135 mmol/L (136-145) L 03/04/25 04:48 Potassium 3.6 mmol/L (3.5-5.1) 03/04/25 04:48 Chloride 103 mmol/L (98-107) 03/04/25 04:48 Carbon Dioxide 21 mmol/L (22-29) L 03/04/25 04:48 Anion Gap 14.6 (5-19) 03/04/25 04:48 BUN 7 mg/dL (6-20) 03/04/25 04:48 Creatinine 0.6 mg/dL (0.5-0.9) 03/04/25 04:48 GFR Calculation 106.3 mL/min (90-130) 03/04/25 04:48 Treatment plan:: new consult Regimen:: 1500 MG Q8H
--- NOTE | 2025-03-04 10:59 | P.PN_ITS ---
Subjective 2 Subjective: She is doing well this morning. She denies any more fevers. States that her heart rate has been high. Has been eating and drinking okay. Vitals/I&O/Wt Last Vital Signs Temp 98.3 F 03/04/25 07:45 Pulse 105 H 03/04/25 07:45 Resp 18 03/04/25 07:45 BP 145/82 03/04/25 07:45 Pulse Ox 97 03/04/25 07:45 O2 Del Method Room Air 03/04/25 07:45 03/03/25 03/04/25 03/04/25 22:59 06:59 14:59 Intake Total 0 / 0 120 / 120 360 / 360 Output Total 300 / 300 Balance 0 / 0 -180 / -180 360 / 360 Weight last 48 hrs Weight 266 lb 9.6 oz Weight 250 lb Physical Exam 2 Narrative: General: Cooperative patient in no apparent distress. Well developed. HEENT: Normocephalic, Atraumatic. External ears normal. Nasal passages patent without drainage. MMM. Heart: Tachycardic with regular rhythm. Resp: LCTA. No respiratory distress, no use of accessory muscles. Extremities: Left foot is mildly swollen, warm, without significant tenderness palpation. Right toe with ulcer of the plantar surface of her great toe. Measuring approximately 2 cm. There is a mild amount of seropurulent drainage. There is a healed surgical scar over the lateral surface hindfoot. Data 03/04/25 04:48 03/04/25 04:48 Micro: Microbiology 03/04/25 00:30 Blood Culture - Preliminary Blood SPECIMEN COLLECTED 03/04/25 00:22 Blood Culture - Preliminary Blood SPECIMEN COLLECTED A&P Assessment and plan (1) Left ankle pain: (2) Tachycardia: (3) Osteomyelitis: (4) Type 2 diabetes mellitus: (5) Abrasion, right great toe, subsequent encounter: Plan 49-year-old female admitted for fever, tachycardia, left ankle pain and concern for osteomyelitis, and right toe ulcer. Continue close inpatient monitoring. Podiatry is consulted and they do plan to see the patient later today. Will start on broad-spectrum antibiotics due to concern for osteomyelitis of the left ankle/foot and right toe ulceration. She is afebrile since admission, but she remains tachycardic. Blood sugars have been elevated. She did receive 4 units of Humalog this morning. Will switch to moderate sliding scale and continue Accu-Cheks. Will restart her home medications for chronic medical conditions. She did have a previous wound culture which showed Klebsiella and Pseudomonas. Both were sensitive to Zosyn. She has been on levofloxacin for treatment of these. She has blood cultures pending. She also has a history of MRSA from a wound. She was treated with Zyvox for this previously. Will wait until podiatry has evaluated, and then we can have it better determination of plan. Pain is adequately controlled. Will continue medications as needed. Continue heparin for anticoagulation. Code Status: Full IVF: NS at 75 DVT PPx: Heparin GI PPx: Protonix ABx: Vancomycin and Zosyn Diet: Carb consistent Discharge plan: Home when stable. PDMP PDMP Reviewed: Not Reviewed Attestations 2 Medical Necessity Statement*: Patient will need ongoing hospital care for IV antibiotics, surgical consultation, and possibly additional imaging for concern of osteomyelitis. Coding Level of Care Code Acute Code for Chg Fwd High MDM includes number and complexity of problems actively addressed during encounter, amount and/or complexity of data reviewed/ordered and described risk of complication, morbidity or mortality of management as documented Diagnoses Left ankle pain M25.572 Tachycardia R00.0 Osteomyelitis M86.9 Type 2 diabetes mellitus E11.9 Abrasion, right great toe, subsequent encounter S90.411D
[2025-03-04] MEDS: sodium chloride 0.9% 1,000 ML 75 ML IV ×2 (11:02→21:42)
[2025-03-04] MEDS: vancomycin 1,500 MG/300 ML PIGGYBACK 200 MG IV ×2 (11:02→18:06)
[2025-03-04 11:03] LABS: Glucose Point of Care 314 mg/dL (70-110)
[2025-03-04 12:11] VITALS: BP 136/91; PULSE 99; RESP 18; TEMP 36.8; O2SAT 97
[2025-03-04] MEDS: piperacillin-tazobactam 3.375 GM in sodium chloride 0.9% (plus) 50 ML IV ×2 (13:18→20:01)
--- NOTE | 2025-03-04 13:24 | P.PN_ITS ---
Subjective 2 Subjective: Patient seen at bedside this morning. Resting comfortably. Patient states that she is feeling better today. Antibiotics were initiated this morning. Vitals/I&O/Wt Last Vital Signs Temp 98.3 F 03/04/25 12:11 Pulse 99 03/04/25 12:11 Resp 18 03/04/25 12:11 BP 136/91 03/04/25 12:11 Pulse Ox 97 03/04/25 12:11 O2 Del Method Room Air 03/04/25 07:45 03/03/25 03/04/25 03/04/25 22:59 06:59 14:59 Intake Total 0 / 0 120 / 120 1642.5 / 1642.5 Output Total 300 / 300 Balance 0 / 0 -180 / -180 1642.5 / 1642.5 Weight last 48 hrs Weight 266 lb 9.6 oz Weight 250 lb Physical Exam 2 Narrative: BELOW IS A FOCUSED LOWER EXTREMITY EXAM VASCULAR: DP/PT pulses palpable 2/4 with CFT intact, <3 seconds to distal digits DERMATOLOGICAL: No open wounds or ulcerations noted to the left foot. Skin turgor is within normal limits. Mild edema present compared to contralateral limb. No erythema or drainage. Right hallux evaluated this morning. Abscess visualized at hallux interphalangeal joint underlying hyperkeratotic lesion. Patient underwent excisional debridement down to level of fascia. Postdebridement measurements 2.0 x 1.8 x 0.3 cm. See details below MUSCULOSKELETAL: Mild tenderness with palpation of medial navicular tuberosity and plantar calcaneus at origin of plantar fascia. No pain with palpation of lateral calcaneal wall at prior incision site. No tenderness with ankle or subtalar joint range of motion. Ankle and hindfoot ROM within normal limits. 5/5 muscle strength in all quadrants. NEUROLOGICAL: Neurological sensation to the left foot and ankle is present through L4-S1 dermatomes with no hyper/hypoesthesias, negative Tinel or Valleix's sign IMAGING: MRI of the left foot obtained today shows marrow edema of the plantar calcaneus concerning for chronic osteomyelitis; associated midfoot edema with joint effusion concerning for possible septic joint; high-grade plantar fascia tear at its calcaneal insertion (worsened since November); possible nondisplaced navicular insufficiency fracture. No discrete fluid collection to suggest abscess Data 03/04/25 04:48 03/04/25 04:48 Micro: Microbiology 03/04/25 00:30 Blood Culture - Preliminary Blood SPECIMEN COLLECTED 03/04/25 00:22 Blood Culture - Preliminary Blood SPECIMEN COLLECTED A&P Assessment and plan (1) Osteomyelitis: (2) Type 2 diabetes mellitus: (3) Left ankle pain: Plan -Presenting with worsening left heel pain; concern for chronic osteomyelitis, plantar fascia rupture, and midfoot joint involvement -Labs and vitals reviewed -WBC 4.8 -ESR 27 -CRP 112 - VSS -BP 149/74 -Cultures Klebsiella and Pseudomonas from 01/27/25 (sensitive to Levaquin); MRSA from 12/10/24 (sensitive to Zyvox)--right hallux abscess cultures obtained at bedside today 03/04/2025 -Pathology: Left calcaneus bone biopsy sent to surgical pathology to evaluate for osteomyelitis. Pending -Abx Broad-spectrum empiric antibiotics to be initiated -Diet: Regular from podiatry standpoint -Pain Mgmt: Subjectively improved today; continue supportive measures -Weight bearing: Nonweightbearing left lower extremity -Dressings: Right hallux wound Daily dressing changes consisting of Betadine wet-to-dry -Continue current Abx therapy until ID and Sensitivity results -Trend labs -Discharge plan: To be determined - Patient underwent 2 procedures at bedside today. Details below. 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 Will reevaluate tomorrow. Patient may benefit from a period of immobilization upon discharge from the hospital in cast PROCEDURE: Left calcaneal bone biopsy CPT 66900 Location: Left plantar lateral calcaneus Local Anesthesia: 6 cc 1% lidocaine plain Consent: Verbal and written consent obtained Sterile Prep: Chlorhexidine Details: After site was cleansed with alcohol 6 cc of 1% lidocaine plain was used to anesthetize the plantar lateral aspect of the calcaneus. After anesthesia was achieved, the site was prepped with ChloraPrep. After prep, a 15 blade was used to make a stab incision over the plantar lateral aspect of the calcaneus. A Jamshidi needle was then inserted into the incision down to the level of calcaneus. 3 separate passes with a Jamshidi needle were performed in the calcaneus to remove bone to be sent to pathology for evaluation and to determine if osteomyelitis is present. The incision site was then closed with a single stitch of 4-0 nylon before being dressed with dry sterile dressing. Hemostasis: Manual compression Dressing: Dry 4 x 4 gauze, Medipore tape Estimated Blood Loss: 3 cc PROCEDURE: Right hallux wound excisional debridement CPT 67815 Location: Right hallux interphalangeal joint plantarly Local Anesthesia: None needed secondary to neuropathy Consent: Obtained Details: Abscess overlying right hallux interphalangeal joint was noted. Scissors were used to deroofed the abscess. Excisional debridement carried down to the level of deep fascia using scissors. These were used to remove devitalized and necrotic tissue. Purulence visualized. Cultures aerobic and anaerobic were obtained Predebridement measurements: Hyperkeratotic lesion with underlying abscess Postdebridement measurements: 2.0 x 1.8 x 0.3 cm Hemostasis: Manual compression Dressing: Betadine wet-to-dry Estimated Blood Loss: 1 cc Wound culture both aerobic and anaerobic taken. PDMP PDMP Reviewed: Not Reviewed Attestations 2 Medical Necessity Statement*: Right hallux abscess, concern for osteomyelitis of left calcaneus as well as Charcot arthropathy of left midfoot Coding Level of Care Code Acute Code for Chg Fwd Diagnoses Osteomyelitis M86.9 Type 2 diabetes mellitus E11.9 Left ankle pain M25.572
[2025-03-04 15:38] LABS: Glucose Point of Care 114 mg/dL (70-110)
[2025-03-04 17:44] VITALS: BP 130/83; PULSE 92; RESP 18; TEMP 36.4; O2SAT 97
[2025-03-04 19:39] VITALS: BP 146/77; PULSE 92; RESP 17; TEMP 36.8; O2SAT 98
[2025-03-04 21:05] LABS: Glucose Point of Care 203 mg/dL (70-110)
[2025-03-05] VITALS (7 sets, daily range): BP systolic 102–148; BP diastolic 61–91; PULSE 85–97; RESP 16–19; TEMP 36.7; O2SAT 95–98
[2025-03-05] MEDS: vancomycin 1,500 MG/300 ML PIGGYBACK 200 MG IV ×3 (02:15→18:18)
[2025-03-05] MEDS: piperacillin-tazobactam 3.375 GM in sodium chloride 0.9% (plus) 50 ML IV ×3 (03:52→20:11)
[2025-03-05 04:58] LABS: Basophils % 0.7 %; Eosinophils # 0.1 10^3/uL (0.0-0.8); Eosinophils % 1.6 %; Hematocrit 35.6 % (36-47); Lymphocytes # 2.2 10^3/uL (0.8-4.8); Lymphocytes % 36.5 %; Mean Corpuscular HGB Conc 31.2 g/dL (30-55); Mean Corpuscular Hemoglobin 28.6 pg (27-33); Mean Corpuscular Volume 91.8 fl (85-98); Mean Platelet Volume 11.4 fL (7.4-10.4); Monocytes # 0.7 10^3/uL (0.2-0.9); Neutrophils # 3.03 10^3/uL (1.8-7.7); Neutrophils % 49.5 %; Nucleated Red Blood Cells % 0 %; Platelet Count 198 10^3/cmm (157-399); Red Blood Count 3.88 10^6/uL (3.85-5.65); White Blood Count 6.11 10^3/uL (3.29-11.43)
[2025-03-05 05:18] LABS: Alanine Aminotransferase 44 U/L (0-33); Alkaline Phosphatase 87 U/L (35-105); Aspartate Amino Transferase 40 U/L (0-32); Blood Urea Nitrogen 8 mg/dL (6-20); Carbon Dioxide 19 mmol/L (22-29); Chloride 107 mmol/L (98-107); Creatinine Clr Calc Pharmacy 155.2572; Globulin 2.9 g/dL (1.3-4.6); Glomerular Filtration Rate 106.3 mL/min (90-130); Glucose 170 mg/dL (65-115); Osmolality Calculated 288 mOsm/kg (285-295); Sodium 138 mmol/L (136-145); Total Bilirubin 0.2 mg/dL (0.15-1.2); Total Protein 5.9 g/dL (6.6-8.7)
[2025-03-05 06:45] LABS: Glucose Point of Care 218 mg/dL (70-110)
--- NOTE | 2025-03-05 07:25 | P.PN_ITS ---
Subjective 2 Subjective: Reports she is doing pretty well today. She denies any pain at this time. Says her sugars have been just a little bit high. Vitals/I&O/Wt Last Vital Signs Temp 98.1 F 03/05/25 07:17 Pulse 85 03/05/25 07:17 Resp 18 03/05/25 07:17 BP 144/76 03/05/25 07:17 Pulse Ox 96 03/05/25 07:17 O2 Del Method Room Air 03/05/25 07:17 03/04/25 03/05/25 03/05/25 22:59 06:59 14:59 Intake Total 1890 / 3772.5 350 / 4122.5 Balance 1890 / 3772.5 350 / 4122.5 Weight last 48 hrs Weight 272 lb 4.8 oz Weight 266 lb 9.6 oz Weight 250 lb Physical Exam 2 Narrative: General: Cooperative patient in no apparent distress. Well developed. HEENT: Normocephalic, Atraumatic. External ears normal. Nasal passages patent without drainage. MMM. Heart: Tachycardic with regular rhythm. Resp: LCTA. No respiratory distress, no use of accessory muscles. Extremities: Left lower extremity is slightly swollen. Dressings are present on both feet, and are clean, intact and dry. Data 03/05/25 03:53 03/05/25 03:53 Micro: Microbiology 03/04/25 00:30 Blood Culture - Preliminary Blood NEGATIVE TO DATE 03/04/25 00:22 Blood Culture - Preliminary Blood NEGATIVE TO DATE 03/04/25 13:10 Gram Stain - Final Toe - Abscess A&P Assessment and plan (1) Left ankle pain: (2) Tachycardia: (3) Osteomyelitis: (4) Type 2 diabetes mellitus: (5) Abrasion, right great toe, subsequent encounter: Plan 49-year-old female admitted for fever, tachycardia, left ankle pain and concern for osteomyelitis, and right toe ulcer. Continue close inpatient monitoring. Podiatry is consulted and helping to manage the wounds on both feet. They did obtain biopsies and sent for cultures, these are pending. Remains afebrile. Her heart rate has improved. She is no longer tachycardic. CRP has improved to 53 from 112 on admission. Will continue broad-spectrum antibiotics. Currently on Vanco and Zosyn. Had previous wound cultures which showed Klebsiella and Pseudomonas. Both were sensitive to Zosyn. She has been on levofloxacin for treatment of these. She has blood cultures pending. She also has a history of MRSA from a wound. She was treated with Zyvox for this previously. Sugars have been elevated. She is currently on metformin and glimepiride. Continue sliding scale insulin for now, and will continue Accu-Cheks. Her last A1c was 9.4. May consider adding additional medications or adjusting these therapies prior to discharge. Pain is adequately controlled. Will continue medications as needed. Continue heparin for anticoagulation. She is eating and drinking well. We can stop IV fluids at this time. Code Status: Full IVF: NS at 75 DVT PPx: Heparin GI PPx: Protonix ABx: Vancomycin and Zosyn Diet: Carb consistent Discharge plan: Home when stable. PDMP PDMP Reviewed: Not Reviewed Attestations 2 Medical Necessity Statement*: Patient will need ongoing hospital care for IV antibiotics, surgical consultation, and possibly additional imaging for concern of osteomyelitis. Coding Level of Care Code Acute Code for Chg Fwd Moderate MDM includes number and complexity of problems actively addressed during encounter, amount and/or complexity of data reviewed/ordered and described risk of complication, morbidity or mortality of management as documented Diagnoses Left ankle pain M25.572 Tachycardia R00.0 Osteomyelitis M86.9 Type 2 diabetes mellitus E11.9 Abrasion, right great toe, subsequent encounter S90.411D
[2025-03-05] MEDS: insulin lispro 100 unit/1 mL SUBCUT ×3 (07:58→21:00)
[2025-03-05] MEDS: acetaminophen 325 mg Tablet 650 MG PO ×2 (07:59→18:18)
[2025-03-05] MEDS: docusate sodium 100 mg Capsule PO ×2 (08:00→18:18)
[2025-03-05] MEDS: metformin XR 500 MG Tablet PO ×2 (08:03→18:18)
[2025-03-05] MEDS: levothyroxine 25 mcg Tablet PO (08:03)
[2025-03-05] MEDS: pantoprazole DR 40 mg Tablet PO (08:03)
[2025-03-05] MEDS: glimepiride 2 mg Tablet 4 MG PO (08:03)
[2025-03-05] MEDS: spironolactone 25 mg Tablet PO (08:04)
[2025-03-05] MEDS: heparin 5,000 unit/mL INJ 1 mL 5000 UNIT SUBCUT ×2 (08:04→21:00)
[2025-03-05] MEDS: sodium chloride 0.9% 1,000 ML 75 ML IV (10:20)
[2025-03-05 10:58] LABS: Glucose Point of Care 169 mg/dL (70-110)
--- NOTE | 2025-03-05 15:28 | P.PN_ITS ---
Subjective 2 Subjective: Patient seen at bedside earlier this morning. Resting comfortably. Pain is well-controlled. No overnight events. Vitals/I&O/Wt Last Vital Signs Temp 98.1 F 03/05/25 11:43 Pulse 90 03/05/25 11:43 Resp 18 03/05/25 11:43 BP 148/91 03/05/25 11:43 Pulse Ox 97 03/05/25 11:43 O2 Del Method Room Air 03/05/25 11:43 03/05/25 03/05/25 03/05/25 06:59 14:59 22:59 Intake Total 350 / 4122.5 Balance 350 / 4122.5 Weight last 48 hrs Weight 272 lb 4.8 oz Weight 266 lb 9.6 oz Weight 250 lb Physical Exam 2 Narrative: BELOW IS A FOCUSED LOWER EXTREMITY EXAM VASCULAR: DP/PT pulses palpable 2/4 with CFT intact, <3 seconds to distal digits DERMATOLOGICAL: No open wounds or ulcerations noted to the left foot. Skin turgor is within normal limits. Mild edema present compared to contralateral limb. No erythema or drainage. Right hallux evaluated this morning. Right hallux full-thickness wound at level of hallux interphalangeal joint measures 2.0 x 1.8 x 0.3 cm. MUSCULOSKELETAL: Mild tenderness with palpation of medial navicular tuberosity and plantar calcaneus at origin of plantar fascia. No pain with palpation of lateral calcaneal wall at prior incision site. No tenderness with ankle or subtalar joint range of motion. Ankle and hindfoot ROM within normal limits. 5/5 muscle strength in all quadrants. NEUROLOGICAL: Neurological sensation to the left foot and ankle is present through L4-S1 dermatomes with no hyper/hypoesthesias, negative Tinel or Valleix's sign IMAGING: MRI of the left foot obtained today shows marrow edema of the plantar calcaneus concerning for chronic osteomyelitis; associated midfoot edema with joint effusion concerning for possible septic joint; high-grade plantar fascia tear at its calcaneal insertion (worsened since November); possible nondisplaced navicular insufficiency fracture. No discrete fluid collection to suggest abscess Data 03/05/25 03:53 03/05/25 03:53 Micro: Microbiology 03/04/25 13:10 Gram Stain - Final Toe - Abscess Wound Culture - Preliminary 03/04/25 00:30 Blood Culture - Preliminary Blood NEGATIVE TO DATE 03/04/25 00:22 Blood Culture - Preliminary Blood NEGATIVE TO DATE A&P Assessment and plan (1) Osteomyelitis: (2) Type 2 diabetes mellitus: (3) Left ankle pain: Plan -Presenting with worsening left heel pain; concern for chronic osteomyelitis, plantar fascia rupture, and midfoot joint involvement -Labs and vitals reviewed -WBC 4.8 -ESR 27 -CRP 112--> 53 - VSS -BP 149/74 -Cultures Klebsiella and Pseudomonas from 01/27/25 (sensitive to Levaquin); MRSA from 12/10/24 (sensitive to Zyvox)--right hallux abscess cultures obtained y 03/04/2025 show gram-positive cocci in pairs -Pathology: Left calcaneus bone biopsy sent to surgical pathology to evaluate for osteomyelitis. Pending -Abx Broad-spectrum empiric antibiotics to be initiated -Diet: Regular from podiatry standpoint -Pain Mgmt: Subjectively improved today; continue supportive measures -Weight bearing: Nonweightbearing left lower extremity -Dressings: Right hallux wound Daily dressing changes consisting of Betadine wet-to-dry -Continue current Abx therapy until ID and Sensitivity results -Trend labs -Discharge plan: See below Patient labs continue to improve. CRP remains elevated at 53. My concern is that patient presented to the emergency department with signs of sepsis with tachycardia, tachypnea and febrile with fevers spiking the night before at home subjectively at 101 ?F. White count failed to mount a response. I believe the patient's diabetes is limiting immune response in the presence of infection and elevated CRP is main indicator of infection. This has trended down overnight status post incision and drainage of abscess of right hallux. IV antibiotics have been helping. I believe it is in patient's best interest to continue with another day of IV antibiotic therapy. This will also allow for further time to pass for ID and sensitivities of right hallux abscess cultures. Plan to reevaluate patient tomorrow morning. Pathology results from bone biopsy will likely take a few more days to result. Anticipate likely discharge home on oral antibiotics tomorrow 03/06/2025. I am also concerned about MRI findings of left foot specifically midfoot and navicular. Navicular showed subchondral fractures. Concern for possible early Charcot arthropathy of midfoot. This was discussed with patient. We will immobilize patient upon discharge from the hospital. Patient has cam boot but will remain nonweightbearing for 2 weeks at minimum. We will need to facilitate nonweightbearing status in the outpatient setting for patient with crutches or preferably knee scooter. In the event that bone biopsy results come back positive for osteomyelitis we will coordinate outpatient PICC line placement and IV antibiotic therapy. PDMP PDMP Reviewed: Not Reviewed Attestations 2 Medical Necessity Statement*: see above Coding Level of Care Code Acute Code for [facility] Diagnoses Osteomyelitis M86.9 Type 2 diabetes mellitus E11.9 Left ankle pain M25.572
[2025-03-05 16:38] LABS: Glucose Point of Care 136 mg/dL (70-110)
[2025-03-05 20:33] LABS: Glucose Point of Care 247 mg/dL (70-110)
[2025-03-06] MEDS: vancomycin 1,500 MG/300 ML PIGGYBACK 200 MG IV ×2 (02:59→11:34)
[2025-03-06 04:00] VITALS: BP 131/80; PULSE 82; RESP 18; TEMP 36.6; O2SAT 96
[2025-03-06] MEDS: piperacillin-tazobactam 3.375 GM in sodium chloride 0.9% (plus) 50 ML IV (04:44)
[2025-03-06 06:43] LABS: Glucose Point of Care 130 mg/dL (70-110)
[2025-03-06 06:44] LABS: Anion Gap 15.2 (5-19); Blood Urea Nitrogen 9 mg/dL (6-20); C Reactive Protein 29.8 mg/L (0.0-4.9); Calcium 9.1 mg/dL (8.5-10.5); Carbon Dioxide 23 mmol/L (22-29); Chloride 103 mmol/L (98-107); Creatinine Clr Calc Pharmacy 155.5494; Glomerular Filtration Rate 106.3 mL/min (90-130); Glucose 134 mg/dL (65-115); Osmolality Calculated 285 mOsm/kg (285-295); Potassium 4.2 mmol/L (3.5-5.1); Sodium 137 mmol/L (136-145)
[2025-03-06 06:54] LABS: Erythrocyte Sedimentation Rate 46 mm/hr (0-15)
[2025-03-06 07:10] VITALS: BP 120/77; PULSE 91; RESP 18; TEMP 36.8; O2SAT 97
[2025-03-06] MEDS: levothyroxine 25 mcg Tablet PO (09:48)
[2025-03-06] MEDS: metformin XR 500 MG Tablet PO (09:48)
[2025-03-06] MEDS: glimepiride 2 mg Tablet 4 MG PO (09:49)
[2025-03-06] MEDS: docusate sodium 100 mg Capsule PO (09:49)
[2025-03-06] MEDS: heparin 5,000 unit/mL INJ 1 mL 5000 UNIT SUBCUT (09:49)
[2025-03-06] MEDS: pantoprazole DR 40 mg Tablet PO (09:49)
[2025-03-06] MEDS: spironolactone 25 mg Tablet PO (09:49)
[2025-03-06] MEDS: acetaminophen 325 mg Tablet 650 MG PO (09:55)
--- NOTE | 2025-03-06 10:29 | PM.PN ---
Subjective Subjective: Patient seen at bedside this morning. Resting comfortably. No overnight events. Vitals/I&O/Wt Last Vital Signs Temp 98.2 F 03/06/25 07:10 Pulse 91 03/06/25 07:10 Resp 18 03/06/25 07:10 BP 120/77 03/06/25 07:10 Pulse Ox 97 03/06/25 07:10 O2 Del Method Room Air 03/06/25 07:10 03/05/25 03/06/25 03/06/25 22:59 06:59 14:59 Intake Total 1873.75 / 3891.25 570 / 4461.25 290 / 290 Balance 1873.75 / 3891.25 570 / 4461.25 290 / 290 Weight last 48 hrs Weight 267 lb 8 oz Weight 272 lb 4.8 oz Physical Exam Narrative: BELOW IS A FOCUSED LOWER EXTREMITY EXAM VASCULAR: DP/PT pulses palpable 2/4 with CFT intact, <3 seconds to distal digits DERMATOLOGICAL: No open wounds or ulcerations noted to the left foot. Skin turgor is within normal limits. Mild edema present compared to contralateral limb. No erythema or drainage. Right hallux evaluated this morning. Right hallux full-thickness wound at level of hallux interphalangeal joint measures 2.0 x 1.8 x 0.3 cm. MUSCULOSKELETAL: Mild tenderness with palpation of medial navicular tuberosity and plantar calcaneus at origin of plantar fascia. No pain with palpation of lateral calcaneal wall at prior incision site. No tenderness with ankle or subtalar joint range of motion. Ankle and hindfoot ROM within normal limits. 5/5 muscle strength in all quadrants. NEUROLOGICAL: Neurological sensation to the left foot and ankle is present through L4-S1 dermatomes with no hyper/hypoesthesias, negative Tinel or Valleix's sign IMAGING: MRI of the left foot obtained today shows marrow edema of the plantar calcaneus concerning for chronic osteomyelitis; associated midfoot edema with joint effusion concerning for possible septic joint; high-grade plantar fascia tear at its calcaneal insertion (worsened since November); possible nondisplaced navicular insufficiency fracture. No discrete fluid collection to suggest abscess Data 03/05/25 03:53 03/06/25 06:10 Micro: Microbiology 03/04/25 13:10 Gram Stain - Final Toe - Abscess Wound Culture - Preliminary A&P Assessment and plan (1) Osteomyelitis: (2) Type 2 diabetes mellitus: (3) Left ankle pain: Plan -Presenting with worsening left heel pain; concern for chronic osteomyelitis, plantar fascia rupture, and midfoot joint involvement -Labs and vitals reviewed -WBC 4.8 -ESR 27 -CRP 112--> 53 - VSS -BP 149/74 -Cultures Klebsiella and Pseudomonas from 01/27/25 (sensitive to Levaquin); MRSA from 12/10/24 (sensitive to Zyvox)--right hallux abscess cultures obtained yesterday 03/04/2025 show gram-positive cocci in pairs -Pathology: Left calcaneus bone biopsy sent to surgical pathology to evaluate for osteomyelitis. Pending -Abx Broad-spectrum empiric antibiotics to be initiated -Diet: Regular from podiatry standpoint -Pain Mgmt: Subjectively improved today; continue supportive measures -Weight bearing: Nonweightbearing left lower extremity -Dressings: Right hallux wound Daily dressing changes consisting of Betadine wet-to-dry -Continue current Abx therapy until ID and Sensitivity results -Trend labs -Discharge plan: See below Patient labs continue to improve. CRP remains elevated at 53. My concern is that patient presented to the emergency department with signs of sepsis with tachycardia, tachypnea and febrile with fevers spiking the night before at home subjectively at 101 ?F. White count failed to mount a response. I believe the patient's diabetes is limiting immune response in the presence of infection and elevated CRP is main indicator of infection. This has trended down overnight status post incision and drainage of abscess of right hallux. IV antibiotics have been helping. I believe it is in patient's best interest to continue with another day of IV antibiotic therapy. This will also allow for further time to pass for ID and sensitivities of right hallux abscess cultures. Plan to reevaluate patient tomorrow morning. Pathology results from bone biopsy will likely take a few more days to result. Anticipate likely discharge home on oral antibiotics tomorrow 03/06/2025. I am also concerned about MRI findings of left foot specifically midfoot and navicular. Navicular showed subchondral fractures. Concern for possible early Charcot arthropathy of midfoot. This was discussed with patient. We will immobilize patient upon discharge from the hospital. Patient has cam boot but will remain nonweightbearing for 2 weeks at minimum. We will need to facilitate nonweightbearing status in the outpatient setting for patient with crutches or preferably knee scooter. In the event that bone biopsy results come back positive for osteomyelitis we will coordinate outpatient PICC line placement and IV antibiotic therapy. Patient has continued to improve. CRP trends down. ESR is trending up. This pattern has been concerned as well as with patient's presentation for Charcot arthropathy of the left foot. We will have patient be completely mobilized to the left foot upon discharge. Nonweightbearing. Patient has cam boot at home. She is to wear this when she gets home. Recommend crutches for discharge to facilitate nonweightbearing status. Prescription for knee scooter also given to patient to take to home medical supply. We will discharge patient home with broad-spectrum oral antibiotics. Pathology still pending from bone culture. This will be addressed in the outpatient setting based on findings. Patient is okay to discharge home with the aforementioned recommendations with follow-up in the outpatient setting with podiatry within the next 7 days. PDMP PDMP Reviewed: Not Reviewed Attestations Medical Necessity Statement*: See above Coding Level of Care Code Acute Code for [facility] Fwd Diagnoses Osteomyelitis M86.9 Type 2 diabetes mellitus E11.9 Left ankle pain M25.572
--- NOTE | 2025-03-06 10:53 | PM.DCS ---
Discharge Providers Date of Admission: 03/03/25 19:40 Date of Discharge: March 06, 2025 Attending Provider at Admission: Jada Martínez MD Attending Provider at Discharge: Leonel Comer MD Consults: Podiatry: Dr. Obrien Primary Care Provider: Pino Sandoval MD Diagnoses at Discharge Discharge Diagnosis (1) Osteomyelitis: Status: Acute (2) Type 2 diabetes mellitus: Status: Acute (3) Left ankle pain: Status: Acute Reason for Visit Reason for Visit: Osteomylitis Dr Obrien/ Dr Martínez Brief History: History as per HPI: Jacquelyn Marin is a 49 year old female with medical history significant for diabetes on oral metformin glipizide and glimepiride now with MRI finding of what looks like osteomyelitis of the left ankle region patient also have a right plantar aspect of the great toe wound does seem to have been infected. Patient had not related this to the chief of hospital medicine. Patient is in with direct admission for the chief of hospital medicine to see her in the morning For possible biopsy of the left ankle region osteomyelitis for more thorough evaluation. Supervisor [employer] will be seeing the right great toe as well that is noted to be a wound bed crusted quite open. Patient meets inpatient criteria and this may depend on the quality assurance consultant biopsy done and further optimization and will be coming from the chief of hospital medicine It is worth noting that patient had been running fever and with associated tachycardia in the 130s at home the last time the fever broke was this morning. Patient at this time has been pancultured from blood and urine. We will hold antibiotics at this time till after the biopsy tomorrow morning Dr. Obrien is going to perform. Hospital Course Hospital Course Patient was admitted to the hospital for further evaluation and management of left ankle pain with concerns for osteomyelitis. Podiatry was consulted. She was started on broad-spectrum IV antibiotics. She underwent bedside bedside debridement along with MRI of the foot. MRI of the foot was concerning for possible early Charcot foot. There is a concern for osteomyelitis though bone pathology so far pending. Podiatry recommended patient to have nonweightbearing status given concerns for Charcot foot with advised to follow-up as an outpatient. They recommend oral antibiotics while bone pathology will be followed up by podiatry team and if there is any concern for osteomyelitis they will arrange for PICC line placement and IV antibiotic as an outpatient. As per prior cultures from the past which were both positive for Klebsiella, Pseudomonas and MRSA she has been discharged on oral ciprofloxacin and linezolid for 2 weeks. During hospitalization she was found to have uncontrolled type 2 diabetes mellitus for which she has been transitioned from OHA's to insulin both Lantus and sliding scale Humalog. She has been discharged hemodynamically stable condition advised to follow-up with podiatry as an outpatient in 1 week, PCP within 3 weeks with a blood sugar diary further adjustment of antidiabetic medications. Physical Exam Narrative: General: Cooperative patient in no apparent distress. Well developed. HEENT: Normocephalic, Atraumatic. External ears normal. Nasal passages patent without drainage. MMM. Heart: Tachycardic with regular rhythm. Resp: LCTA. No respiratory distress, no use of accessory muscles. Extremities: Left lower extremity is slightly swollen. Dressings are present on both feet, and are clean, intact and dry. Discharge Data Studies Completed and Pending Completed Studies During Hospitalization Category Date Time Status XR chest 2V* [id number] Routine Exams 03/03/25 21:08 Completed Pending at discharge Category Date Time Status Blood Culture Stat Lab 03/04/25 00:30 Results Wound Culture and Gram Stain Routine Lab 03/04/25 13:10 Results Pathology: Surgical [PTH] Routine Pth 03/04/25 13:31 Received Radiology Impressions Chest X-Ray 03/03/25 21:08 IMPRESSION: No acute cardiopulmonary process. Microbiology 03/04/25 13:10 Toe - Abscess Gram Stain - Final 03/04/25 13:10 Toe - Abscess Wound Culture - Preliminary 03/04/25 00:30 Blood Blood Culture - Preliminary NEGATIVE TO DATE 03/04/25 00:22 Blood Blood Culture - Preliminary NEGATIVE TO DATE Laboratory Results WBC 6.11 10^3/uL (3.29-11.43) 03/05/25 03:53 RBC 3.88 10^6/uL (3.85-5.65) 03/05/25 03:53 Hgb 11.10 g/dL (11.27-16.99) L 03/05/25 03:53 Hct 35.6 % (36-47) L 03/05/25 03:53 MCV 91.8 fl (85-98) 03/05/25 03:53 MCH 28.6 pg (27-33) 03/05/25 03:53 MCHC 31.2 g/dL (30-55) 03/05/25 03:53 RDW 15.0 % (12.1-15.1) 03/05/25 03:53 Plt Count 198 10^3/cmm (157-399) 03/05/25 03:53 MPV 11.4 fL (7.4-10.4) H 03/05/25 03:53 Neut % (Auto) 49.5 % 03/05/25 03:53 Lymph % (Auto) 36.5 % 03/05/25 03:53 [place] % (Auto) 11.0 % 03/05/25 03:53 Eos % (Auto) 1.6 % 03/05/25 03:53 Baso % (Auto) 0.7 % 03/05/25 03:53 Neut # (Auto) 3.03 10^3/uL (1.8-7.7) 03/05/25 03:53 Lymph # (Auto) 2.2 10^3/uL (0.8-4.8) 03/05/25 03:53 [place] # (Auto) 0.7 10^3/uL (0.2-0.9) 03/05/25 03:53 Eos # (Auto) 0.1 10^3/uL (0.0-0.8) 03/05/25 03:53 Baso # (Auto) 0.0 10^3/uL (0.0-0.1) 03/05/25 03:53 Nucleated RBC % (auto) 0 % 03/05/25 03:53 Nucleated RBCs # 0.0 /100WBC 03/05/25 03:53 ESR 46 mm/hr (0-15) H 03/06/25 06:10 Sodium 137 mmol/L (136-145) 03/06/25 06:10 Potassium 4.2 mmol/L (3.5-5.1) 03/06/25 06:10 Chloride 103 mmol/L (98-107) 03/06/25 06:10 Carbon Dioxide 23 mmol/L (22-29) 03/06/25 06:10 Anion Gap 15.2 (5-19) 03/06/25 06:10 BUN 9 mg/dL (6-20) 03/06/25 06:10 Creatinine 0.6 mg/dL (0.5-0.9) 03/06/25 06:10 GFR Calculation 106.3 mL/min (90-130) 03/06/25 06:10 Glucose 134 mg/dL (65-115) H 03/06/25 06:10 POC Glucose 130 mg/dL (70-110) H 03/06/25 06:37 Calculated Osmolality 285 mOsm/kg (285-295) 03/06/25 06:10 Calcium 9.1 mg/dL (8.5-10.5) 03/06/25 06:10 Phosphorus 2.8 mg/dL (2.5-4.5) 03/03/25 22:36 Magnesium 1.7 mg/dL (1.7-2.3) 03/04/25 04:48 Total Bilirubin 0.2 mg/dL (0.15-1.2) 03/05/25 03:53 AST 40 U/L (0-32) H 03/05/25 03:53 ALT 44 U/L (0-33) H 03/05/25 03:53 Alkaline Phosphatase 87 U/L (35-105) 03/05/25 03:53 C-Reactive Protein 29.8 mg/L (0.0-4.9) H 03/06/25 06:10 Total Protein 5.9 g/dL (6.6-8.7) L 03/05/25 03:53 Albumin 3.0 g/dL (3.5-5.2) L 03/05/25 03:53 Globulin 2.9 g/dL (1.3-4.6) 03/05/25 03:53 Urine Color Dark yellow (Yellow) A 03/04/25 01:49 Urine Appearance Cloudy (CLEAR) A 03/04/25 01:49 Urine pH 5.5 (5-7) 03/04/25 01:49 Ur Specific [place] 1.052 (1.005-1.030) H 03/04/25 01:49 Urine Protein 1+ (Negative) A 03/04/25 01:49 Urine Glucose (UA) 2+ (Normal) H 03/04/25 01:49 Urine Ketones Trace (Negative) 03/04/25 01:49 Urine Blood 3+ (Negative) A 03/04/25 01:49 Urine Nitrate Negative (Negative) 03/04/25 01:49 Urine Bilirubin Negative (Negative) 03/04/25 01:49 Urine Urobilinogen 1.0 mg/dL (Negative) 03/04/25 01:49 Ur Leukocyte Esterase Negative (Negative) 03/04/25 01:49 Urine RBC 51-100 /hpf (0-2) H 03/04/25 01:49 Urine WBC 0-5 /hpf (0-5) 03/04/25 01:49 Ur Squamous Epith Cells 0-5 /hpf (0-5) 03/04/25 01:49 Amorphous Sediment Not Reportable 03/04/25 01:49 Urine Bacteria None seen /hpf (NONE) 03/04/25 01:49 Hyaline Casts 3.30 /lpf 03/04/25 01:49 Vancomycin Trough 15.0 ug/mL (10-15) 03/05/25 09:45 Vitals Last Vital Signs Temp 98.2 F 03/06/25 07:10 Pulse 91 03/06/25 07:10 Resp 18 03/06/25 07:10 BP 120/77 03/06/25 07:10 Pulse Ox 97 03/06/25 07:10 O2 Del Method Room Air 03/06/25 07:10 Discharge Plan Discharge Patient Disposition: Home Condition: Stable Prescriptions: New (DME) blood-glucose meter [Blood Glucose Monitoring] Kit See Rx Instructions .ROUTE .MEDSUPPLY Qty: 1 0RF Rx Instructions: As directed insulin glargine [Lantus Solostar U-100 Insulin] 100 unit/mL (3 mL) insulin pen 10 unit SUBCUT QPM Qty: 15 0RF insulin lispro [Humalog KwikPen Insulin] 100 unit/mL insulin pen See Protocol SUBCUT TID Qty: 15 0RF Protocol: Insulin Corrective High-Dose Regimen Condition: Fingerstick Blood Glucose Dose/Route: Insulin Units Condition: 141-180 mg/dl Dose/Route: 2 units/SQ Condition: 181-220 mg/dl Dose/Route: 4 units/SQ Condition: 221-260 mg/dl Dose/Route: 6 units/SQ Condition: 261-300 mg/dl Dose/Route: 8 units/SQ Condition: 301-350 mg/dl Dose/Route: 10 units/SQ Condition: 351-400 mg/dl Dose/Route: 12 units/SQ Condition: greater than 400 mg/dl Dose/Route: 14 units/SQ (DME) lancets Misc See Rx Instructions .ROUTE .MEDSUPPLY Qty: 100 0RF Rx Instructions: As directed ciprofloxacin HCl 500 mg tablet 500 mg PO Q12H 14 Days Qty: 28 0RF linezolid 600 mg tablet 600 mg PO BID 14 Days Qty: 28 0RF Continued (DME) Diabetic Shoes with heat molded inserts See Rx Instructions .Route .MEDSUPPLY Qty: 1 0RF Rx Instructions: As directed by Mercedes Slaughterys levothyroxine 25 mcg tablet 25 mcg PO DAILY Qty: 90 3RF spironolactone 25 mg tablet 25 mg PO DAILY Qty: 30 11RF (DME) diabetic shoes with custom inserts See Rx Instructions .Route .MEDSUPPLY Qty: 1 0RF Rx Instructions: As directed to the mercedes moreau (DME) Knee Scooter See Rx Instructions .Route .MEDSUPPLY Qty: 1 0RF Rx Instructions: As directed Discontinued glimepiride 4 mg tablet 4 mg PO DAILY Qty: 30 11RF metformin 500 mg tablet extended release 24 hr 500 mg PO BID Qty: 60 11RF levofloxacin 750 mg tablet 750 mg PO DAILY Qty: 7 0RF Discharge Orders: Discharge Order (Routine); Ordered 03/06/25 Ordered By: Leonel Comer Other Ambulatory Orders: DME: Cane/ Crutches (Order) Location: None Selected Ordered By: Francisco Obrien Referrals: Francisco Obrien DPM [Physician, Podiatry] - 03/09/25 8:15 am Pino Sandoval MD [Primary Care Provider, Family Practice] - 03/21/25 2:20 pm Discharge Diet: Cardiac and Diabetic Discharge Activity: Resume usual activity and Increase activity as tolerated Patient Instructions: Ciprofloxacin (By mouth), Linezolid (By mouth), Insulin Glargine (By injection), Insulin Lispro (By injection), Osteomyelitis (GEN), Opioid Safety Activity Restrictions/Additional Instructions: Take 10 units of Lantus every day. Take Humalog which is Premeal insulin as per sliding scale provided below. If Fingerstick Blood Glucose, then Insulin Units; If 141-180 mg/dl, then 2 units/SQ; If 181-220 mg/dl, then 4 units/SQ; If 221-260 mg/dl, then 6 units/SQ; If 261-300 mg/dl, then 8 units/SQ; If 301-350 mg/dl, then 10 units/SQ; If 351-400 mg/dl, then 12 units/SQ; If greater than 400 mg/dl, then 14 units/SQ Do not take glimepiride and metformin. Your fasting blood sugar goal is less than 120, Premeal blood sugar goal is less than 140. Follow-up with a primary care provider within next 2 weeks with the blood sugar diary for further adjustment of insulin as needed. Ciprofloxacin and linezolid are the antibiotic you are supposed to be on for next 2 weeks. Take both of them twice daily. Follow-up with podiatry as an outpatient for further evaluation and management. Please maintain strict nonweightbearing. Betadine wet to dry dressing daily to R foot Discharge Attestations Time Spent in Discharge Care*: greater than 30 min Specific Discharge Activities: educating patient, discussing with pcp/other providers, discussing with rehabilitation caseworker/social workers/dc planners, documenting/other paperwork and evaluating patient/reviewing data Status at Discharge: Cognitive status at discharge: cognitively intact, Behavioral status at discharge: cooperative, Functional status at discharge: other assisted ambulation, Overall status at discharge: patient is progressing back to baseline Quality Metrics Clinical Quality Measures [ No reported AMI, CVA or VTE this stay] Coding Level of Care Code 75689 Total time (in minutes) for Discharge: 65 Diagnoses Osteomyelitis M86.9 Type 2 diabetes mellitus E11.9 Left ankle pain M25.572
[2025-03-06 10:56] LABS: Glucose Point of Care 190 mg/dL (70-110)
[2025-03-06 10:57] VITALS: BP 169/95; PULSE 89; RESP 18; TEMP 36.7; O2SAT 96
[2025-03-06] MEDS: insulin lispro 100 unit/1 mL SUBCUT (12:28)
[2025-03-06 14:01] VITALS: BP 169/95; PULSE 89; RESP 18; TEMP 36.7; O2SAT 96
--- NOTE | 2025-03-06 14:03 | PC.NURSE ---
Discussed discharge with patient. Spoke in detail of insulin sliding scale. Discussed new medications and discontinued medications with patient and went over follow up visits. Patient verbalized understanding.
== END 2025-03-06 13:50 | disposition home or self-care (01) | DRG 264 ==
PROVIDERS: Family Medicine; Internal Medicine; Podiatrist Foot & Ankle Surgery; Admitting Provider Internal Medicine; PCP Family Medicine; Visit Provider Student in an Organized Health Care Education/Training Program
DX: E11.52 Type 2 diabetes mellitus with diabetic peripheral angiopathy with gangrene (principal); I96 Gangrene, not elsewhere classified; L02.611 Cutaneous abscess of right foot; L97.518 Non-pressure chronic ulcer of other part of right foot with other specified severity; L97.419 Non-pressure chronic ulcer of right heel and midfoot with unspecified severity; E11.621 Type 2 diabetes mellitus with foot ulcer; E11.610 Type 2 diabetes mellitus with diabetic neuropathic arthropathy; E11.65 Type 2 diabetes mellitus with hyperglycemia; Z86.14 Personal history of Methicillin resistant Staphylococcus aureus infection; E03.9 Hypothyroidism, unspecified; R00.0 Tachycardia, unspecified; L97.519 Non-pressure chronic ulcer of other part of right foot with unspecified severity; E11.40 Type 2 diabetes mellitus with diabetic neuropathy, unspecified
CPT/HCPCS: 36415; 36416; 71046; 80048; 80053; 80202; 81001; 82962; 83735; 84100; 85025; 85651; 86140; 87040; 87070; 87075; 87205; 88307; 88311; 93005; 96372; J1644; J1815; J2470; J2543; J3370; J7030; J9999

== ENCOUNTER → 2025-03-21 10:11 | Outpatient (BNVA) | payer OTHER, SELFPAY | PROVIDERS: PCP Family Medicine; Visit Provider Podiatrist Foot & Ankle Surgery | DX: M72.2 Plantar fascial fibromatosis (principal); E11.9 Type 2 diabetes mellitus without complications; Z98.890 Other specified postprocedural states; Z09 Encounter for follow-up examination after completed treatment for conditions other than malignant neoplasm; M14.60 Charcot's joint, unspecified site; R00.0 Tachycardia, unspecified; L02.611 Cutaneous abscess of right foot; E11.69 Type 2 diabetes mellitus with other specified complication; M14.672 Charcot's joint, left ankle and foot; M86.8X7 Other osteomyelitis, ankle and foot; Z79.4 Long term (current) use of insulin | CPT/HCPCS: 73610; 73620; 73630; 80053; 85025; 85651; 86140 ==

== ENCOUNTER → 2025-03-23 15:50 | Outpatient (BNVA) | payer OTHER, SELFPAY | PROVIDERS: PCP Family Medicine | DX: E11.9 Type 2 diabetes mellitus without complications (principal); N18.9 Chronic kidney disease, unspecified | CPT/HCPCS: 80053; 85025; 86140 ==

== ENCOUNTER → 2025-03-27 11:25 | Outpatient (BNVA) | payer OTHER, SELFPAY | PROVIDERS: PCP Family Medicine | DX: M86.9 Osteomyelitis, unspecified (principal) | CPT/HCPCS: 85025; 85651; 86140 ==

== ENCOUNTER → 2025-04-05 09:12 | Outpatient (BNVA) | payer OTHER, SELFPAY | PROVIDERS: PCP Family Medicine; Visit Provider Podiatrist Foot & Ankle Surgery | DX: M25.572 Pain in left ankle and joints of left foot (principal); M14.672 Charcot's joint, left ankle and foot; Z98.890 Other specified postprocedural states; E11.69 Type 2 diabetes mellitus with other specified complication; Z79.84 Long term (current) use of oral hypoglycemic drugs; M86.8X7 Other osteomyelitis, ankle and foot | CPT/HCPCS: 73630 ==

== ENCOUNTER → 2025-05-09 09:07 | Outpatient (BNVA) | payer OTHER, SELFPAY | PROVIDERS: PCP Family Medicine; Visit Provider Podiatrist Foot & Ankle Surgery | DX: E11.610 Type 2 diabetes mellitus with diabetic neuropathic arthropathy (principal); Z98.890 Other specified postprocedural states; M86.672 Other chronic osteomyelitis, left ankle and foot; Z79.84 Long term (current) use of oral hypoglycemic drugs | CPT/HCPCS: 73630; 80053; 83036; 84443; 85025; 86140 ==

== ENCOUNTER 2025-05-29 14:18 | Oncology outpatient (recurring) (ONCR) | payer OTHER, SELFPAY | END 2025-06-13 23:59 | disposition home or self-care (01) | LOC: SLEEP 14:19 → ONCMED 05-30 07:20 | PROVIDERS: PCP Family Medicine; Referring Provider Family Medicine; Visit Provider Internal Medicine Pulmonary Disease | DX: G47.33 Obstructive sleep apnea (adult) (pediatric) (principal) | CPT/HCPCS: G0399 ==

== ENCOUNTER → 2025-06-20 08:50 | Outpatient (BNVA) | payer OTHER, SELFPAY | PROVIDERS: PCP Family Medicine; Visit Provider Podiatrist Foot & Ankle Surgery | DX: Z98.890 Other specified postprocedural states (principal); M14.672 Charcot's joint, left ankle and foot; E11.9 Type 2 diabetes mellitus without complications; M86.8X6 Other osteomyelitis, lower leg; Z79.84 Long term (current) use of oral hypoglycemic drugs | CPT/HCPCS: 73630 ==